=== PATIENT | male | born 1960 | race Caucasian/White ===

== ENCOUNTER → 2017-10-18 15:14 | Outpatient (CLI) | payer MEDICARE, SELFPAY ==
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
== END ==
PROVIDERS: Visit Provider Family Medicine
DX: R59.0 Localized enlarged lymph nodes (principal)
CPT/HCPCS: 70491; Q9967

== ENCOUNTER → 2017-11-06 09:29 | Outpatient (CLI) | payer MEDICARE, SELFPAY ==
--- NOTE | 2017-11-06 | IMM_PTH ---
PATIENT: ROSANNA MCCARTHY III LOC: LAB. U#:[id number] AGE/SX: 65/M ROOM: RE11/06/[address]: Dr. Wes Ramirez MD : 1960 BED: DIS: SPEC #: [id number] RECD: 11/07/17 11:38 STATUS: MAX REQ #: [id number] SHANDRA: 11/06/17 00:[address]: Wes Ramirez DEPT: IMMUNOHISTOCHEMISTRY RECD BY: Shreya Arriola ENTERED: 11/07/17 11:40 SP TYPE: IMMUNO OTHR DR: Dr. Jane Campbell MD Tissues: Neck, NOS Procedures: CK5-6 (initial) CK14 (add) CK7 (add) KI-67 (add) P16 (add) P53 (add) P40 (add) PHYSICIAN & INSTITUTION [place] [id number] SPECIMEN INFORMATION: Tissue Source: Right neck mass Clinical Info: Right neck mass Specimen Number: [id number] CPT code: METHODOLOGY: Deparaffinized sections of prefer/formalin-fixed tissue or PAP/DQ stained slides are incubated with monoclonal/polyclonal antibodies/oligonucleotide probes. Localization is made via biotin free immunoperoxidase method. Appropriate controls are performed and reacted as expected. Results on target cell population are indicated in the following table: RESULTS: ANTIBODY / CLONE RESULT CK5-6 (D5 & 1684) noncontributory CK14 (LL002) noncontributory P40 (BC28) noncontributory P16 (E6H4) noncontributory CK7 (OV-TL12/30) noncontributory P53 (DO-7) noncontributory Ki-67 (30-9) noncontributory These tests were developed and their performance characteristics determined by [facility]. They may not have been cleared or approved by the U.S. Food and Drug Administration. The FDA has determined that such clearance or approval is not necessary. INTERPRETATION: Right neck mass, fine needle aspiration, smears and cell block: Malignant cells present derived from non-small cell carcinoma (only in smears). The cell block and the IHC stained smears are negative for malignant cells and are noncontributory. SJ:damon 11/08/17
--- NOTE | 2017-11-06 | FLU_PTH ---
PATIENT: ROSANNA MCCARTHY III LOC: [facility]#:[id number] AGE/SX: 65/M ROOM: RE11/06/[address]: Dr. Wes Ramirez MD : 1960 BED: DIS: SPEC #: [id number] RECD: 11/06/17 15:37 STATUS: MAX VICKY #: [id number] SHANDRA: 11/06/17 00:[address]: Wes Ramirez DEPT: CYTOLOGY RECD BY: Erich Hoyos ENTERED: 11/06/17 15:38 SP TYPE: Fluid OTHR DR: Dr. Jane Campbell MD Tissues: Neck, NOS Procedures: Pap Stain (control) Special Stain Group II Surgery Specimen Level IV Diff Quik Stain (control) Cell Block Cytospin Fluid HEADER OPERATION: FNA right neck mass PRE-OP DIAGNOSIS: Right neck mass TISSUE SUBMITTED: Right neck mass FNA DIAGNOSIS CYTOLOGY Fine needle aspiration, right neck mass (smears and cell block): Malignant cells present derived from non-small cell carcinoma, favor squamous cell carcinoma. See comment. AM:damon 11/07/17 COMMENT The specimen is evaluated at the time of FNA by Dr. Dobson. Immediate Evaluation = Positive for malignant cells consistent with non-small cell carcinoma, favor squamous cell carcinoma. Malignant cells are present only in the smears. The cell block and IHC (HI81-780) stained slides do not show any malignant cells and are non-contributory. Case has been reviewed in consultation with Dr. Dockery who concurs with the above diagnosis. IDC:SJ CYTOLOGY STUDY Slides are reviewed. CYTOLOGY GROSS Received is 0.2 ml of reddish fluid labeled with the patient's name, and designated right neck mass. Four imprints and two paps are made from the submitted fluid and the rest is added to CytoLyt for cell block preparation. Submitted for cytology study. / AM:damon 11/06/17 TC:0 CPT: 66206, 32050, 48328, 66108 ADDENDUM ADDENDUM ADDENDUM ADDENDUM ADDENDUM ADDENDUM ADDENDUM ADDENDUM ADDENDUM ADDENDUM ADDENDUM 12/12/2017 14:30 ADDENDUM 12/12/2017 14:30 ADDENDUM 12/12/2017 14:30 ADDENDUM 12/12/2017 14:30 ADDENDUM 12/12/2017 14:30 This addendum is added to incorporate an outside pathology consultation report. The case was examined at [facility] (#[id number]) and the following diagnosis was rendered. Right neck mass, fine needle aspiration: Positive for malignant cells. Metastatic squamous cell carcinoma. Please see complete above mentioned consultation report in EMR
== END ==
PROVIDERS: Family Provider Family Medicine; PCP Family Medicine; Visit Provider Otolaryngology Otolaryngology/Facial Plastic Surgery
DX: R22.1 Localized swelling, mass and lump, neck (principal)
CPT/HCPCS: 88108; 88305; 88313; 88341; 88342

== ENCOUNTER 2017-11-13 06:50 | Day surgery (SDC) | payer MEDICARE, SELFPAY ==
[2017-11-13] VITALS (10 sets, daily range): BP systolic 125–164; BP diastolic 74–96; PULSE 81–99; RESP 16–18; TEMP 36.3–37; O2SAT 94–99; BMI 18.1
--- NOTE | 2017-11-13 | TOBX_PTH ---
PATIENT: ROSANNA MCCARTHY III LOC: [facility] U#:[id number] AGE/SX: 57/M ROOM: RE11/13/[address]: Dr. Wes Ramirez MD : 1960 BED: DIS: 11/13/2017 SPEC #: [id number] RECD: 11/13/17 09:35 STATUS: MAX REHuong #: [id number] SHANDRA: 11/13/17 00:[address]: Wes Ramirez DEPT: SURGICAL PATHOLOGY RECD BY: Shreya Arriola ENTERED: 11/13/17 10:43 SP TYPE: TONGUE BX OTHR DR: Dr. Jane Campbell MD Tissues: A - Tongue, NOS Procedures: Frozen Section (charge) Surgery Specimen Level IV Frozen (no charge) HEADER OPERATION: Panendoscopy, biopsy tongue, frozen section PRE-OP DIAGNOSIS: Malignant neoplasm of anterior two thirds of tongue, secondary and unspecified malignant neoplasm of lymph nodes of head, face and neck, right TISSUE SUBMITTED: Tongue biopsy sent for FS FROZEN SECTION DIAGNOSIS Tongue, excisional biopsy: Invasive squamous cell carcinoma, completely excised. Focal squamous atypia at the anterior margin. ALEX:damon 11/13/17 Case has been reviewed in consultation with Dr. Dobson who concurs with the above diagnosis. IDC:AM MICROSCOPIC DIAGNOSIS Lesion of tongue, excisional biopsy: Invasive well to moderately differentiated squamous cell carcinoma, completely excised. AM:damon 11/14/17 COMMENT Well to moderately differentiated adenocarcinoma is present with ulceration in the excisional biopsy of the tongue. The carcinoma extends to involve superficial and mid portions of tongue skeletal muscle tissue in the biopsy. There is focal perineural invasion by carcinoma. Angiolymphatic invasion is not identified. The lesion measures 8 x 3 mm in greatest dimension (from glass slides). Focal mild to moderate atypia is noted at the anterior margin of resection. Reference is made to the patient?s recent fine needle aspiration of right neck mass from 11/07/17 ([id number]) in which malignant cells derived from non-small cell carcinoma, favors squamous cell carcinoma were identified. Case has been reviewed in consultation with Dr. Dockery who concurs with the above diagnosis. IDC:SJ MICROSCOPIC DESCRIPTION Slides are reviewed. GROSS DESCRIPTION Received fresh for frozen section diagnosis labeled with the patient's name is a specimen designated tongue biopsy. The specimen consists of a piece of pink-avendaño mucosal tissue measuring 2.4 x 1.5 cm and up to 0.5 cm in thickness. The specimen is oriented as follows: two sutures ? anterior, one suture ? base of margin. The specimen is inked as follows: anterior ? black, posterior ? blue, lateral margin ? green, medial margin ? yellow. The specimen is entirely submitted for frozen section diagnosis as follows: 1 ? anterior-posterior margin, 2 ? rest of the specimen. / SJ:rg 11/13/17 TC:0 CPT: 27458, 57694, 12179 ADDENDUM ADDENDUM ADDENDUM ADDENDUM ADDENDUM ADDENDUM ADDENDUM ADDENDUM ADDENDUM ADDENDUM 12/05/2017 12:43 ADDENDUM 12/05/2017 12:43 ADDENDUM 12/05/2017 12:43 ADDENDUM 12/05/2017 12:43 ADDENDUM 12/05/2017 12:43 This addendum is added to incorporate an outside pathology consultation report. The case was examined at [facility] (#[id number]) and the following diagnosis was rendered. Tongue, excisional biopsy: Invasive moderately to poorly differentiated keratinizing squamous cell carcinoma. Please see complete above mentioned consultation report in EMR
--- NOTE | 2017-11-13 11:34 | PCM.OP.BLANK ---
Operative Report Date of Procedure: 11/13/17 Operative procedure Procedure excision of ulcer right lateral border of the tongue Direct laryngoscopy Nasopharyngoscopy Laryngoscopy Esophagoscopy Preoperative diagnosis squamous cell carcinoma of the tongue and right neck metastases Postoperative diagnosis same The patient was placed supine on the operating room table. After satisfactory endotracheal general anesthesia had been obtained sterile drapes were applied and the patient draped in the usual sterile manner. The oral cavity was examined. The floor of mouth and the cheek mucosa and roof of mouth appeared to be normal. The anterior two thirds of the tongue exhibited a 1.5 cm ulcerated area on the right lateral surface of the tongue. The base of tongue and the retromolar trigone area appeared to be normal. Direct Laryngoscopy was then performed and the vallecula as well as the epiglottis, aryepiglottic folds and piriform sinuses were examined and were noted to be normal. Both cords appeared to be normal and there was no evidence of any lesions in the supraglottic and subglottic areas The nasopharynx was then examined and there was no evidence of any lesions in the posterior choanae or the area of the eustachian tube orifice. An esophagoscope was then introduced into the oral cavity and the posterior larynx was examined. The esophagus was entered and the upper third of the esophagus examined. There was no evidence of any mucosal lesions. The anterior two thirds of the tongue was then examined and 1% Xylocaine was infiltrated around the lesion on the lateral surface of the tongue. An elliptical shaped incision was outlined and the lesion completely excised. The excised specimen measured 3.5 x 2 cm in dimension. The sub-mucosal areas were approximated with interrupted sutures of 4-0 chromic catgut in layers. The mucosal edges were approximated with 4-0 chromic catgut. A frozen section diagnosis of squamous cell carcinoma was returned. The lesion was completely excised. The oral cavity was rinsed with saline. The patient was extubated and returned to the recovery room in satisfactory condition.
== END 2017-11-13 13:30 | disposition home or self-care (01) ==
LOC: SDC 06:51 → AC 06:52
PROVIDERS: Family Provider Family Medicine; PCP Family Medicine; Visit Provider Otolaryngology Otolaryngology/Facial Plastic Surgery
PROC: 0CJS8ZZ Inspection of Larynx, Via Natural or Artificial Opening Endoscopic (ICD-10-PCS; CPT 31575; principal; 2017-11-13 08:10)
DX: C02.3 Malignant neoplasm of anterior two-thirds of tongue, part unspecified (principal); C77.0 Secondary and unspecified malignant neoplasm of lymph nodes of head, face and neck; K21.9 Gastro-esophageal reflux disease without esophagitis; F17.200 Nicotine dependence, unspecified, uncomplicated; Z79.82 Long term (current) use of aspirin
CPT/HCPCS: 00170; 31525; 41112; 43191; 88305; 88331; J7120; J2405

== ENCOUNTER 2017-12-26 11:23 | Day surgery (SDC) | payer MEDICARE, SELFPAY ==
[2017-12-26 11:52] VITALS: BP 141/91; PULSE 90; RESP 18; TEMP 36.9; O2SAT 98; BMI 17.4
[2017-12-26 12:54] VITALS: BP 138/90; BP 141/91; PULSE 98; RESP 19; TEMP 36.9; O2SAT 98
[2017-12-26 13:00] VITALS: BP 131/86; BP 141/91; PULSE 93; RESP 16; O2SAT 97
[2017-12-26 13:05] VITALS: BP 121/88; BP 141/91; PULSE 88; RESP 16; O2SAT 98
[2017-12-26 13:09] VITALS: BP 141/91; BP 142/85; PULSE 89; RESP 16; TEMP 36.8; O2SAT 98
[2017-12-26 13:33] VITALS: BP 141/91
--- NOTE | 2017-12-27 11:55 | PCM.OPRPT ---
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, dysphagia, weight loss, need for nutrition Post-Operative Diagnosis: same as above, also esophageal opening too small to pass esophagoscope Surgery/Procedure Performed:: attempted PEG Description of Surgical Findings:: esophageal opening just proximal to vocal cords - too small an opening to pass esophagoscope - therefore procedure aborted Type of Anesthesia:: MAC Anesthesiologist: Roldan Skelton Specimen's removed: none Estimated Blood Loss (mL): none Fluids Replaced: see anesthesia note Description of Procedure: Jay Crabtree is a 57 y/o WM with known tongue cancer and also 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 Both are SCCa. He presents for placement of PEG. He has noted difficulty swallowing for months, and lately has only been able to drink liquids. Under MAC anesthesia, the upper endoscopy was attempted. Appropriate time out protocol was followed. The endoscopy was lubricated and inserted into the patient's mouth. The hypopharyngeal area was easily visualized. The opening of the esophagus could not be achieved even with insufflation of air. There was obvious obstruction from the hypopharyngeal mass causing obstruction upon the opening into the esophagus. Therefore the procedure was aborted. The vocal cords and opening of the trachea was widely open and patent and easily visualized. Patient will be referred to [facility] or [facility] for placement of PEG. - Complications no complications, could not complete procedure
== END 2017-12-26 13:34 | disposition home or self-care (01) ==
LOC: EN 11:23 → AC 11:25
PROVIDERS: Family Provider Family Medicine; PCP Family Medicine; Visit Provider Surgery
PROC: 0DJ08ZZ Inspection of Upper Intestinal Tract, Via Natural or Artificial Opening Endoscopic (ICD-10-PCS; CPT 43235; 2017-12-26 12:25)
DX: J39.2 Other diseases of pharynx (principal); C13.8 Malignant neoplasm of overlapping sites of hypopharynx; R13.12 Dysphagia, oropharyngeal phase; R63.4 Abnormal weight loss; C77.0 Secondary and unspecified malignant neoplasm of lymph nodes of head, face and neck; Z68.1 Body mass index [BMI] 19.9 or less, adult; F41.9 Anxiety disorder, unspecified; M19.042 Primary osteoarthritis, left hand; M19.041 Primary osteoarthritis, right hand; F32.9 Major depressive disorder, single episode, unspecified; M72.0 Palmar fascial fibromatosis [Dupuytren]; F17.210 Nicotine dependence, cigarettes, uncomplicated; Z79.891 Long term (current) use of opiate analgesic; Z79.899 Other long term (current) drug therapy
CPT/HCPCS: 43246; J7120

== ENCOUNTER 2018-01-13 04:53 | Emergency (ER) | payer MEDICARE, SELFPAY ==
[2018-01-13 04:54] VITALS: BP 121/73; PULSE 73; RESP 16; TEMP 36.5; O2SAT 99; BMI 17.4
--- NOTE | 2018-01-13 06:21 | ED.VISSUMM ---
- ER Visit Summary Date of Service: 01/13/18 Chief Complaint: Constipated and rectal pain History of Present Illness: The patient is a 58 M who presents with constipation. He has a history of stage III cancer. He states that this is in his neck and upper chest but he is not sure of the exact type. He was on fentanyl patches but states he was not prescribed or advised to take a stool softener. He has since stopped using the patches due to constipation. He states he has been constipated for about 3 weeks. He was recently seen at the [facility] for this. He had x-rays and was diagnosed with constipation and prescribed magnesium citrate to administer through his PEG tube. No rectal exam was performed at that time. Over the past several days he states that he feels like there is a hard stool mass right at his rectum that he is unable to pass despite straining. He complains of severe rectal pain but really no other abdominal pain. He denies other recent illness such as fevers vomiting chest pain shortness of breath. Physical Examination: Afebrile vitals are unremarkable Moist mucous membranes Heart regular rate and rhythm Lungs are clear Abdomen soft but he does have mild diffuse abdominal tenderness no guarding no rebound he has normal bowel sounds Digital rectal exam shows a fecal impaction. Test Results: Not indicated Emergency Department Course and Treatment: Patient has a fecal impaction. He was manually disimpacted. Lidocaine jelly was placed in the rectum. He did have pain associated with the disimpaction but did tolerate well otherwise. He was then given a fleets enema. He was able to have a bowel movement and reports marked relief of symptoms. Is advised to start a stool softener particularly if he restarts his opiates. All questions answered at bedside. Patient agreeable to the plan. He understands to return for new or worsening symptoms. He was discharged. Treatment Plan: [] Disposition: Discharge Impression: Fecal impaction This note was generated with [employer] dictation software. It may contain incorrect words, spelling, and punctuation that were not noted in review of the chart prior to signing ED Disposition - Plan for ED Patient: Chief Complaint: Constipation Referrals: Jane Campbell MD [Primary Care Provider] -
--- NOTE | 2018-01-13 06:26 | ED.DCSUM_ITS ---
- ER Visit Summary Date of Service: 01/13/18 Chief Complaint: Constipated and rectal pain History of Present Illness: The patient is a 58 M who presents with constipation. He has a history of stage III cancer. He states that this is in his neck and upper chest but he is not sure of the exact type. He was on fentanyl patches but states he was not prescribed or advised to take a stool softener. He has since stopped using the patches due to constipation. He states he has been constipated for about 3 weeks. He was recently seen at the [facility] for this. He had x-rays and was diagnosed with constipation and prescribed magnesium citrate to administer through his PEG tube. No rectal exam was performed at that time. Over the past several days he states that he feels like there is a hard stool mass right at his rectum that he is unable to pass despite straining. He complains of severe rectal pain but really no other abdominal pain. He denies other recent illness such as fevers vomiting chest pain shortness of breath. Physical Examination: Afebrile vitals are unremarkable Moist mucous membranes Heart regular rate and rhythm Lungs are clear Abdomen soft but he does have mild diffuse abdominal tenderness no guarding no rebound he has normal bowel sounds Digital rectal exam shows a fecal impaction. Test Results: Not indicated Emergency Department Course and Treatment: Patient has a fecal impaction. He was manually disimpacted. Lidocaine jelly was placed in the rectum. He did have pain associated with the disimpaction but did tolerate well otherwise. He was then given a fleets enema. He was able to have a bowel movement and reports marked relief of symptoms. Is advised to start a stool softener particularly if he restarts his opiates. All questions answered at bedside. Patient agreeable to the plan. He understands to return for new or worsening symptoms. He was discharged. Treatment Plan: [] Disposition: Discharge Impression: Fecal impaction This note was generated with [employer] dictation software. It may contain incorrect words, spelling, and punctuation that were not noted in review of the chart prior to signing ED Disposition - Plan for ED Patient: Chief Complaint: Constipation Referrals: Jane Campbell MD [Primary Care Provider] -
--- NOTE | 2018-01-13 06:26 | ED.DEP ---
ED Disposition - Plan for ED Patient: Chief Complaint: Constipation Instructions: ED Impaction Fecal Treated, ED Constipation Referrals: Jane Campbell MD [Primary Care Provider] -
== END 2018-01-13 06:37 | disposition home or self-care (01) ==
PROVIDERS: Emergency Provider Emergency Medicine; Family Provider Family Medicine; PCP Family Medicine
DX: K56.41 Fecal impaction (principal); C80.1 Malignant (primary) neoplasm, unspecified; Z79.891 Long term (current) use of opiate analgesic
CPT/HCPCS: 99282

== ENCOUNTER 2018-01-26 22:47 | Emergency (ER) | payer MEDICARE, SELFPAY ==
[2018-01-26 22:48] VITALS: BP 127/79; PULSE 90; RESP 16; TEMP 36.6; O2SAT 98; BMI 15.8
--- NOTE | 2018-01-26 23:17 | EKG12_ITS ---
Test Reason : DEHYDRATION Blood Pressure : / mmHG Vent. Rate : 081 BPM Atrial Rate : 081 BPM P-R Int : 154 ms QRS Dur : 090 ms QT Int : 396 ms P-R-T Axes : 070 043 096 degrees QTc Int : 460 ms Normal sinus rhythm with sinus arrhythmia Nonspecific T wave abnormality Prolonged QT Abnormal ECG Confirmed by PELON ROSARIO, TARA ([id number]), editor managing newspaper [employer] ([id number]) on 02/06/2018 6:48:51 PM Referred By: PATRICIAYENoy Confirmed By:TARA BIRD MD
--- NOTE | 2018-01-26 23:30 | ED.VISSUMM ---
- ER Visit Summary Date of Service: 01/26/18 Chief Complaint: [] Nausea trouble hydrating himself constipation of head neck possible esophageal cancer History of Present Illness: The patient is a 58 M [] ports she was diagnosed in September with head neck cancer that began under his tongue in his posterior throat in his right neck he had biopsies that showed cancer, he has been treated with radiation chemotherapy he has a PEG tube as he is unable to swallow and hydrate himself he presents complaining of persistent difficulty taking liquids by G-tube hydrating himself persistent sense of constipation my he had chemotherapy 2 weeks ago nothing recently Physical Examination: [] He is resting comfortably in bed he is cachectic he has an obvious mass in the right side of his neck is oral cavity seems dry his neck is otherwise supple his speech is easy to understand his oral cavity is generally unremarkable she has a fullness over the anterior cervical chain the lungs are clear the heart tones unremarkable abdomen is soft nontender G-tube is in place rectal exam shows hard stool in the rectal wall and he was disimpacted neurologically he is awake alert moving all 4 complaining of generalized fatigue Test Results: [] Emergency Department Course and Treatment: [] Planed all of the above the patient I recommended screening labs IV fluids potential admission, he adamantly declined admission stating simply want IV fluids and be discharged home follow-up with his physicians eValuation the patient's test ?2.7 he is taking supplemental potassium at home, he was given potassium here in the department IV fluids, he is feeling much better his final CT abdominal report is pending, I again offered him admission he refused admission stating he feels better and wants to go home he prefers outpatient management and will follow up with his physicians and oncologist next week and return for change in symptoms, we will check the CT abdomen and proceed with discharge planning as long as it shows nothing life-threatening Treatment Plan: [] Disposition: [] Home stable Impression: [] Nausea, dehydration, head neck cancer on chemotherapy constipation This note was generated with [employer] dictation software. It may contain incorrect words, spelling, and punctuation that were not noted in review of the chart prior to signing ED Disposition - Plan for ED Patient: Chief Complaint: General Illness Referrals: Jane Campbell MD [Primary Care Provider] -
[2018-01-26] MEDS: 0.9% Normal Saline 1,000 ML 1000 ML IV (23:50)
[2018-01-26 23:59] LABS: Absolute Lymphocyte Count 0.95 X10^3/ul (0.83-4.51); Absolute Neutrophil Count 4.4 X10^3/uL (2.0-7.7); Basophil# 0.02 X10^3/uL; Basophil% 0.3 % (0-1); Eosinophil# 0.22 X10^3/uL; Eosinophils% 3.7 % (0-5); Hematocrit 35.8 % (40-54); Hemoglobin 12.3 g/dl (13.0-16.5); Lymphocyte # 0.95 X10^3/ul (4.0); Lymphocyte % 15.9 % (19-41); Mean Corp Hgb Conc 34.4 g/gl (32-36); Mean Corpuscular Hgb 32.7 pg (27.0-32.0); Mean Corpuscular Volume 95.2 fL (80-94); Monocyte# 0.44 X10^3/uL; Monocyte% 7.3 % (0-10); Neutrophil # 4.36 X10^3/uL (2.7-7.7); Neutrophil % 72.8 % (47-70); Platelet Count 239 K/mm3 (150-450); RBC Distribution Width CV 11.5 % (11.6-14.6); RBC Distribution Width SD 39.8 fl (35.1-43.9); Red Blood Count 3.76 M/mm3 (4.6-6.2)
[2018-01-27 00:01] LABS: POSITIVE COUNT NO; POSITIVE DIFFERENTIAL NO; POSITIVE MORPHOLOGY NO
[2018-01-27 00:28] LABS: AST(SGOT) 49 U/L (15-37); Alanine Aminotransfer ALT/SGPT 127 U/L (16-61); Albumin, Serum 3.2 g/dL (3.2-5.0); Alkaline Phosphatase 100 U/L (45-117); Anion Gap 10 (5-15); BUN 28 mg/dL (7-18); BUN/Creat Ratio 26.2 RATIO (10-20); Calcium,Total 9.2 mg/dL (8.5-10.1); Chloride 93 mmol/L (98-107); Creatinine, Serum 1.07 mg/dL (0.70-1.30); EST Glomerular Filtration Rate 75 mL/min (>60); Est Glom Filt Rate - Afr Amer 91 mL/min (>60); Estimated Creatinine Clearance 56.52 ml/min; Globulin 4.6 g/dL (2.2-4.2); Glucose 125 mg/dL (74-106); Lipase 341 U/L (73-393); Potassium 2.7 mmol/L (3.5-5.1); Protein, Total 7.8 g/dL (6.4-8.2); Sodium Level 134 mmol/L (136-145)
--- NOTE | 2018-01-27 00:38 | ED.DEP ---
ED Disposition - Plan for ED Patient: Chief Complaint: General Illness Instructions: ED Constipation, Understanding Chemotherapy Referrals: Jane Campbell MD [Primary Care Provider] -
[2018-01-27 01:22] VITALS: BP 122/78; PULSE 87; RESP 16; O2SAT 98
--- NOTE | 2018-01-27 01:36 | ED.DEP ---
ED Disposition - Plan for ED Patient: Chief Complaint: General Illness Instructions: Understanding Chemotherapy, ED Constipation Prescriptions: Mineral Oil 120 ml PO BID PRN PRN #120 oil PRN Reason: Constipation Referrals: Jane Campbell MD [Primary Care Provider] -
[2018-01-27 01:40] VITALS: BP 125/67; PULSE 75; RESP 16; O2SAT 97
--- NOTE | 2018-01-27 01:41 | NURSING ---
PT CONCERNED THAT HE WAS GETTING CONSTIPATED AND PUTTING MIRALAX THROUGH HIS PEG AND THAT HAS NOT BEEN WORKING, DOCTOR GAVE THE PT AN RX FOR MINERAL OIL. IV REMOVED, AND REDRESSED PEG TUBE DRESSING.
--- NOTE | 2018-01-27 23:30 | CT_ITS ---
STUDY: CT ABDOMEN AND PELVIS WITHOUT CONTRAST REASON FOR EXAM: Male, 58 years old. Constipation RADIATION DOSAGE (If Supplied By Facility): CTDIvol = ( 6.16 ) mGy, DLP = ( 326.13 ) mGycm TECHNIQUE: Transaxial images were obtained from the lower chest to the upper thighs without oral contrast, and without intravenous contrast. Sagittal and coronal images were reconstructed. Individualized dose optimization techniques were used for this CT. COMPARISON: None. FINDINGS: There is minimal dependent atelectasis in both lung bases. There is no pleural effusion. The heart is normal in size. The liver is unremarkable. The gallbladder and biliary ducts are unremarkable. The spleen is unremarkable. The pancreas is unremarkable. The adrenal glands are unremarkable. The right kidney is unremarkable. There is no dilatation of the collecting system in the right kidney. The left kidney is unremarkable. There is no dilatation of the collecting system in the left kidney. There is a percutaneous gastrostomy tube with the balloon in the antrum of the stomach. The small bowel is unremarkable. There is marked stool in the colon. There is non-visualization of the appendix. There are minimal scattered vascular calcifications. The IVC is unremarkable. The retroperitoneum is unremarkable. There is no free fluid in the abdomen. The urinary bladder is unremarkable. The prostate is normal in size. The soft tissues are unremarkable. There are mild degenerative changes in the visualized spine. CT/Abdomen/Pelvis without Cont IMPRESSION: No acute abnormalities are seen in the abdomen or pelvis. There is marked stool in the colon. There are no acute bowel abnormalities. There is no ascites, free air, inflammation or significant lymphadenopathy. Electronically Signed: Chana Cortez MD at 1:09 EDT Tel Direct: [phone], Service support ,
== END 2018-01-27 01:42 | disposition home or self-care (01) ==
LOC: ED 23:57
PROVIDERS: Emergency Provider Emergency Medicine; Family Provider Family Medicine; PCP Family Medicine
DX: R11.0 Nausea (principal); E86.0 Dehydration; K59.00 Constipation, unspecified; C76.0 Malignant neoplasm of head, face and neck; Z79.899 Other long term (current) drug therapy
CPT/HCPCS: 74176; 80048; 80076; 83690; 84484; 85025; 93005; 96360; 96361; 99285; J7040

== ENCOUNTER 2018-09-09 02:13 | Emergency (ER) | payer MEDICARE, SELFPAY ==
[2018-09-09 02:15] VITALS: BP 169/96; PULSE 108; RESP 18; TEMP 37.1; O2SAT 97; BMI 17.8
--- NOTE | 2018-09-09 02:48 | RAD_ITS ---
STUDY: X-RAY - ABDOMEN/PELVIS REASON FOR EXAM: Male, 58 years old. PEG tube placement. Images obtained after injecting Gastrografin through PEG tube. TECHNIQUE: AP supine abdomen. COMPARISON: [employer] view CT abdomen and pelvis January 27, 2018. FINDINGS: Normal visualized lung bases. A PEG tube is present with tip in the gastric body. There is oral contrast within the stomach and proximal duodenum without evidence of extravasation of contrast. There is an unremarkable bowel gas pattern. There is no demonstrated free abdominal air. The visualized liver, spleen and kidneys are grossly normal in size and morphology. Normal soft tissue structures. Normal visualized osseous structures. RAD/Abdomen Single View IMPRESSION: PEG tube tip in the gastric body without evidence of a leak. Normal bowel gas pattern without evidence of obstruction. Electronically Signed: Isaak Andres MD at 3:17 EST , Service support ,
--- NOTE | 2018-09-09 02:57 | ED.DCSUM_ITS ---
- ER Visit Summary Date of Service: 09/09/18 Chief Complaint: PEG tube dislodged History of Present Illness: The patient is a 58 M presenting for evaluation secondary to PEG tube dislodgment. Patient has a PEG tube in place secondary to stage III throat cancer. He uses this for feedings. Patient states that about an hour prior to arrival he noticed that it had fallen out. It has been in place since October. Physical Examination: Physical exam unremarkable except for abdominal exam. Patient's PEG tube site is clean dry and intact without any evidence of infection. Test Results: Abdominal x-ray demonstrates good placement of replacement PEG tube with Gastrografin Emergency Department Course and Treatment: Patient presented for evaluation secondary to PEG tube dislodgment. PEG tube was not immediately available, so I placed a straight catheter from a urinary straight cath kit in the patient's stoma as a place tinajero. A PEG tube became available, and was actually a 20 Zimbabwean rather than an 18 Zimbabwean. This was lubricated, and was able to be easily passed. The 6 cc balloon was filled with air. Placement was formed with Gastrografin. Patient was discharged. Disposition: Discharge Impression: 1. PEG tube malfunction 2. PEG tube replacement by ED physician This note was generated with [employer] dictation software. It may contain incorrect words, spelling, and punctuation that were not noted in review of the chart prior to signing ED Disposition - Plan for ED Patient: Disposition: Home or Assisted Living Chief Complaint: Other, Pain/Inj Diagnosis: PEG tube malfunction Instructions: ED G Tube Replacement Referrals: Jane Campbell MD [Primary Care Provider] - As Needed
== END 2018-09-09 03:02 | disposition home or self-care (01) ==
PROVIDERS: Emergency Provider Emergency Medicine; Family Provider Family Medicine; PCP Family Medicine
DX: K94.23 Gastrostomy malfunction (principal); C14.0 Malignant neoplasm of pharynx, unspecified
CPT/HCPCS: 74018; 99282

== ENCOUNTER 2018-11-06 12:47 | Emergency (ER) | payer MEDICARE, SELFPAY ==
[2018-11-06 12:49] VITALS: BP 107/78; PULSE 117; RESP 19; TEMP 36.3; O2SAT 97; BMI 16.7
--- NOTE | 2018-11-06 13:56 | ED.VIS.GEN ---
History of Present Illness Chief Complaint: Other, Pain/Inj Informant: Patient Onset: Today Context: Sudden Onset Timing: Continuous Quality: Feeding tube fell out Location: PEG Current Severity: Moderate Maximum Severity: Moderate Worsened by: Ruptured balloon Relieved by: Nothing Associated Symptoms: None Narrative: Middle-aged male with metastatic esophageal cancer presents because feeding tube fell out. He states he attempted the place it back in, but he was unsuccessful. He presents the emergency department. He has no other complaints. 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 Denies: Chills, Fever Eyes: Denies: Visual changes - bilaterally, Blurred Vision - bilaterally, Diplopia ENT: Denies: Bilateral ear pain, Rhinorrhea, Sore throat Cardiovascular: Denies: Chest pain, Palpitations, Heart racing Respiratory: Denies: Dyspnea, Cough, Dyspnea on exertion Gastrointestinal: Denies: Abdominal pain, Nausea, Vomiting, Diarrhea, Melena, Hematochezia Skin: Denies: Rash Psych: Reports: Depression Hematologic: Denies: Easy bruising, Easy bleeding Allergy: Denies: Uticaria Physical Exam Vital Signs/Narrative: Vital Signs Temp Pulse Resp BP Pulse Ox 11/06/18 12:49 97.4 F L 117 H 19 H 107/78 97 Inital Vital Signs reviewed: Yes General: Well developed, Cachectic Head: Normocephalic, Atraumatic Eyes: Perrl, EOMI. Negative for: Pale conjunctiva, Scleral icterus ENT: Moist mucous membranes, No rhinorrhea, TM's clear Neck: Supple, Nontender, No lymphadenopathy Cardiovascular: Regular rate, Regular rhythm, No murmurs, Normal S1, Normal S2 Respiratory: No distress, CTA bilaterally, Chest nontender Abdomen: Soft, Nontender, Nondistended, Normal bowel sounds, No masses, - - Abdomen is scaphoid Rectal: Deferred Back: Nontender Neurological: Alert, Oriented x3, Cranial nerves II-XII grossly intact, Normal Strength, Normal Sensation Psychological: - - Affect is flat Diagnostic/Tx/Re-eval - Medical Decision Making Unable to place 20 Stateless feeding tube. Endoscopy was contacted and urethral sounds were sent. Using urethral sounds ostomy was dilated and successfully placed 20 Stateless feeding tube without difficulty. Gastric fluid was aspirated. Procedures Procedure(s): Placement of feeding tube, 20 Stateless after dilating ostomy with urethral sounds. This was performed without difficulty or complication and patient tolerated procedure. ED Disposition - Plan for ED Patient: Disposition: Home or Assisted Living Diagnosis: Status post insertion of percutaneous endoscopic gastrostomy (PEG) tube Instructions: ED G Tube Replacement Referrals: Jane Campbell MD [Primary Care Provider] - As Needed
[2018-11-06 14:19] VITALS: PULSE 107; RESP 17; O2SAT 97
== END 2018-11-06 14:19 | disposition home or self-care (01) ==
PROVIDERS: Emergency Provider Emergency Medicine; Family Provider Family Medicine; PCP Family Medicine
DX: T85.898A Other specified complication of other internal prosthetic devices, implants and grafts, initial encounter (principal); C15.9 Malignant neoplasm of esophagus, unspecified; C79.9 Secondary malignant neoplasm of unspecified site; F17.200 Nicotine dependence, unspecified, uncomplicated; Z93.1 Gastrostomy status
CPT/HCPCS: 99282

== ENCOUNTER 2018-11-18 17:01 | Emergency (ER) | payer MEDICARE, SELFPAY ==
[2018-11-18 17:01] VITALS: BP 121/82; PULSE 129; RESP 16; TEMP 36.6; O2SAT 99; BMI 15.9
[2018-11-18] MEDS: 0.9% Normal Saline 1,000 ML 1000 ML IV (18:03)
--- NOTE | 2018-11-18 18:09 | ED.RN ---
NO SEPSIS CONCERN AT THIS TIME, DEHYDRATED.
[2018-11-18 18:23] LABS: Absolute Lymphocyte Count 0.21 X10^3/ul (0.83-4.51); Basophil# 0.01 X10^3/uL; Basophil% 0.8 % (0-1); Eosinophil# 0.02 X10^3/uL; Eosinophils% 1.5 % (0-5); Hematocrit 32.7 % (40-54); Hemoglobin 10.3 g/dl (13.0-16.5); Lymphocyte # 0.21 X10^3/ul (4.0); Lymphocyte % 15.9 % (19-41); Mean Corp Hgb Conc 31.5 g/gl (32-36); Mean Corpuscular Hgb 28.9 pg (27.0-32.0); Mean Corpuscular Volume 91.6 fL (80-94); Mean Platelet Vol. 9.8 fl (6.2-12.0); Monocyte# 0.07 X10^3/uL; Monocyte% 5.3 % (0-10); Neutrophil % 75.7 % (47-70); Platelet Count 605 K/mm3 (150-450); RBC Distribution Width CV 14.5 % (11.6-14.6); RBC Distribution Width SD 48.6 fl (35.1-43.9); Red Blood Count 3.57 M/mm3 (4.6-6.2)
[2018-11-18 18:24] LABS: Differential Indicated SCAN CRITERIA MET; POSITIVE COUNT YES; POSITIVE DIFFERENTIAL YES; POSITIVE MORPHOLOGY NO
[2018-11-18 18:25] LABS: White Blood Count 1.3 K/mm3 (4.4-11.0)
[2018-11-18 18:37] LABS: AST(SGOT) 20 U/L (15-37); Alanine Aminotransfer ALT/SGPT 17 U/L (16-61); Albumin, Serum 2.8 g/dL (3.2-5.0); Alkaline Phosphatase 96 U/L (45-117); Anion Gap 11 (5-15); BUN 11 mg/dL (7-18); BUN/Creat Ratio 14.7 RATIO (10-20); Bilirubin, Direct 0.18 mg/dL (0.00-0.30); Calcium,Total 9.7 mg/dL (8.5-10.1); Chloride 100 mmol/L (98-107); Creatinine, Serum 0.75 mg/dL (0.70-1.30); EST Glomerular Filtration Rate 114 mL/min (>60); Est Glom Filt Rate - Afr Amer 138 mL/min (>60); Estimated Creatinine Clearance 78.52 ml/min; Globulin 4.9 g/dL (2.2-4.2); Glucose 88 mg/dL (74-106); Potassium 3.2 mmol/L (3.5-5.1); Protein, Total 7.7 g/dL (6.4-8.2); Sodium Level 135 mmol/L (136-145)
[2018-11-18 18:39] LABS: Differential Comment SCANNED
[2018-11-18 19:32] VITALS: BMI 15.9
[2018-11-18 19:49] VITALS: BP 158/97; PULSE 108; RESP 17; O2SAT 98
[2018-11-18] MEDS: 0.9% Normal Saline 1,000 ML 150 ML IV (20:14)
[2018-11-18 20:21] LABS: Bacteria 0 SEEN /hpf (None Seen); Mucous, Urine 0 SEEN /hpf (<or=2+); Red Blood Cells-Urine 0 SEEN /hpf (0-5); White Blood Cells 0 SEEN /hpf (0-5)
[2018-11-18 20:23] LABS: Color, Urine Yellow (Yellow); Glucose, Dipstick Normal (Normal); Leukocyte Esterase-Dipstick Negative /ul (Negative); Nitrite-Dipstick Negative (Negative); Occult Blood-Urine Negative /ul (Negative); Protein-Dipstick 30 mg/dl (Negative); Specific Gravity, Urine 1.025 (1.002-1.030); Urine Bilirubin Dipstick Negative (Negative); Urine Clarity Sl. Cloudy (Clear); Urine Urobilinogen Normal (Normal)
--- NOTE | 2018-11-18 20:37 | ED.RN ---
lab called with critical lab results. Urine ketones 150. Dr. Chapa made aware no new orders at this time
[2018-11-18 20:38] LABS: Ketone-Dipstick 150 mg/dl (Negative)
[2018-11-18 20:39] LABS: Squamous Epithelial Cells - UA 0-5 SEEN /hpf (0-5)
--- NOTE | 2018-11-18 21:05 | ED.RN ---
POTASSIUM CRUSHED AND GIVEN VIA PEG TUBE PER DR DOMÍNGUEZ. PEG ASPIRATED FOR APPROX 10ML CLEAR FLUID. AIR BOLUS ASCULTATED. POTASSIUM GIVEN WITH OUT DIFFICULTY FOLLOWED BY 30ML FLUSH WATER.
--- NOTE | 2018-11-18 21:08 | ED.DCSUM_ITS ---
- ER Visit Summary Date of Service: 11/18/18 Chief Complaint: Weakness History of Present Illness: The patient is a 58 M with stage IV esophageal cancer. He started his fourth type of treatment 2 weeks ago. He had his third dose of chemotherapy on November 14. He reports increased weakness since the . His legs feel weak and he states he has difficulty ambulating. His throat has been more swollen but he is able to tolerate liquids. He has not felt good enough to do his PEG feedings. Physical Examination: Vital signs significant for heart rate of 129, otherwise unremarkable. Patient sitting upright in bed. Head neck examination reveals dry mucous membranes. Heart is tachycardic and regular. Lungs sounds clear. Abdomen is soft and nontender. PEG tube site is clean. Test Results: CBC was a white count of 1.3 with 75% neutrophils. Hemoglobin 10.3. Platelet count is 605,000. Chemistry studies show potassium 3.2. Urinalysis shows 150 ketones. Emergency Department Course and Treatment: Patient was given IV fluids here. Potassium chloride was given via PEG tube. Repeat vital signs include blood pressure 121/78 heart rate of 98. At this time patient does feel improved and wishes to go home rather than stay in the hospital. He was encouraged to be sure to do his PEG tube feedings at night. I spoke with Dr. Ugalde, his oncologist. Patient is to call the office in the morning and he can be brought in to the office for further hydration if needed. Treatment Plan: [] Disposition: Discharge Impression: 1. Dehydration 2. Hypokalemia This note was generated with [employer] dictation software. It may contain incorrect words, spelling, and punctuation that were not noted in review of the chart prior to signing ED Disposition - Plan for ED Patient: Disposition: Home or Assisted Living Instructions: ED Dehydration Referrals: Jose R Ugalde, [STAFF PHYSICIAN] - As soon as possible
--- NOTE | 2018-11-18 21:08 | ED.DEP ---
ED Disposition - Plan for ED Patient: Disposition: Home or Assisted Living Instructions: ED Dehydration Referrals: Jose R Ugalde DO [STAFF PHYSICIAN] - As soon as possible
[2018-11-18 21:22] VITALS: BP 121/78; PULSE 98; RESP 17; O2SAT 97
[2018-11-19 12:39] LABS: Pathologist Review Reviewed
== END 2018-11-18 21:23 | disposition home or self-care (01) ==
PROVIDERS: Emergency Provider Emergency Medicine; Family Provider Family Medicine; PCP Family Medicine
DX: E87.6 Hypokalemia (principal); E86.0 Dehydration; J02.9 Acute pharyngitis, unspecified; K21.9 Gastro-esophageal reflux disease without esophagitis; C15.9 Malignant neoplasm of esophagus, unspecified; Z72.0 Tobacco use
CPT/HCPCS: 80048; 80076; 81001; 85025; 96360; 96361; 99284; J7030

== ENCOUNTER 2018-11-29 11:02 | Inpatient (IN) | payer MEDICARE, SELFPAY ==
[2018-11-29] VITALS (14 sets, daily range): BP systolic 115–144; BP diastolic 78–92; PULSE 83–119; RESP 12–20; TEMP 37.1–37.2; O2SAT 93–99; BMI 16.7; BMI 13.4; BMI 13.5
--- NOTE | 2018-11-29 11:24 | EKG12_ITS ---
Test Reason : SOB Blood Pressure : / mmHG Vent. Rate : 100 BPM Atrial Rate : 100 BPM P-R Int : 140 ms QRS Dur : 082 ms QT Int : 354 ms P-R-T Axes : 086 070 090 degrees QTc Int : 456 ms Normal sinus rhythm Right atrial enlargement Nonspecific ST abnormality Abnormal ECG Confirmed by MIKE ROSARIO, ANSLEY ([id number]), photograph editor PENELOPE LICEA ([id number]) on 12/02/2018 11:16:27 AM Referred By: SANDEEP Confirmed By:ANSLEY MCKEON MD
[2018-11-29 12:07] LABS: Absolute Lymphocyte Count 0.61 X10^3/ul (0.83-4.51); Absolute Neutrophil Count 3.9 X10^3/uL (2.0-7.7); Basophil# 0.04 X10^3/uL; Basophil% 0.7 % (0-1); Eosinophil# 0.04 X10^3/uL; Eosinophils% 0.7 % (0-5); Hematocrit 36.1 % (40-54); Hemoglobin 11.2 g/dl (13.0-16.5); International Normalized Ratio 1.3; Lymphocyte # 0.61 X10^3/ul (4.0); Lymphocyte % 10.9 % (19-41); Mean Corpuscular Hgb 28.5 pg (27.0-32.0); Mean Corpuscular Volume 91.9 fL (80-94); Mean Platelet Vol. 10.2 fl (6.2-12.0); Monocyte# 0.94 X10^3/uL; Monocyte% 16.8 % (0-10); Neutrophil # 3.88 X10^3/uL (2.7-7.7); Neutrophil % 69.1 % (47-70); POSITIVE COUNT NO; POSITIVE DIFFERENTIAL NO; POSITIVE MORPHOLOGY NO; Partial Thromboplast Time 30.8 Seconds (24.1-36.2); Platelet Count 600 K/mm3 (150-450); Prothrombin Time (Protime)PT. 15.6 SECONDS (11.7-14.9); RBC Distribution Width CV 15.2 % (11.6-14.6); RBC Distribution Width SD 51.3 fl (35.1-43.9); Red Blood Count 3.93 M/mm3 (4.6-6.2); White Blood Count 5.6 K/mm3 (4.4-11.0)
[2018-11-29 12:16] LABS: Anion Gap 12 (5-15); BUN 10 mg/dL (7-18); BUN/Creat Ratio 17.8 RATIO (10-20); Calcium,Total 9.2 mg/dL (8.5-10.1); Chloride 96 mmol/L (98-107); Creatinine, Serum 0.56 mg/dL (0.70-1.30); EST Glomerular Filtration Rate 159 mL/min (>60); Est Glom Filt Rate - Afr Amer 192 mL/min (>60); Glucose 71 mg/dL (74-106); Sodium Level 135 mmol/L (136-145)
--- NOTE | 2018-11-29 12:18 | RAD_ITS ---
We are attempting to reach Ragini Smith to discuss findings. An addendum with communication details will be sent when the communication is complete. STUDY: X-RAY CHEST REASON FOR EXAM: Male, 58 years old. SOB; STAGE 4 TONGUE, THROAT, AND NECK CA TECHNIQUE: Frontal and lateral views of the chest. COMPARISON: None. FINDINGS: Hyperexpansion of both lungs. On the right, marked lucency is seen in the lower half of the right lung. The pulmonary parenchyma is displaced and compressed medially with marked atelectasis of much of the right lung. The appearance suggest a localized pneumothorax, since the right upper lobe appears adequately expanded and clear. No mediastinal shift. Left lung is clear. No effusions. Normal size heart. Normal mediastinum and oliver. Normal visualized pulmonary arteries. Normal visualized aortic arch and descending thoracic aorta. Normal visualized thoracic spine. Normal visualized ribs, clavicles, and shoulders. There is no demonstrated abnormality of the visualized soft tissue structures of the upper abdomen. RAD/Chest PA and Lateral IMPRESSION: Probable loculated pneumothorax in the lower half of the right hemithorax compressing the right lower lobe medially. Electronically Signed: Arjun Boothe MD at 13:09 EDT , Service support ,
[2018-11-29 12:25] LABS: Lactic Acid 1.3 mmol/L (0.4-2.0)
[2018-11-29] MEDS: 0.9% Normal Saline 1,000 ML 1000 ML IV (12:52)
[2018-11-29] MEDS: Ipratropium/Albuterol Sulfate 3 ML AMPUL.NEB INHALATION (13:02)
--- NOTE | 2018-11-29 14:14 | CT_ITS ---
STUDY: CTA CHEST REASON FOR EXAM: Male, 58 years old. HypoxiaSCTA - Chest THROAT CANCER WITH METS. CHEMO LAST WEEK RADIATION DOSAGE (If Supplied By Facility): CTDIvol = ( 9.0 ) mGy, DLP = ( 245.63 ) mGycm TECHNIQUE: The examination was performed with the intravenous administration of 100ML IV Isovue 370. Post-processing of the angiographic images was performed, with multiplanar reformation and 3D reconstruction. Individualized dose optimization techniques were used for this CT. COMPARISON: Chest x-ray of earlier today, which showed pneumothorax, which was telephoned directly to the treating physician. FINDINGS: Since prior exam, the right pneumothorax has increased and is now nearly completely with marked compression and atelectasis of the entire right lung especially the lower lobe, and there is now evidence for tension, with shift of the mediastinum to the left and depression of the right hemidiaphragm. Since the chest x-ray of earlier today, findings have progressed. No chest tube is seen. On the left, there is hyperexpansion of the lung. There is evidence for COPD. There are several poorly marginated focal pulmonary densities in the left lower lobe especially the posterior left lung base which could be atelectasis, infiltrates, or atypical metastases. No effusions. Normal enhancement of the main pulmonary artery and right and left pulmonary arteries. Normal enhancement of the bilateral peripheral pulmonary arteries. There is no demonstrated pulmonary embolism. Normal thoracic aorta and visualized great vessels. There is no demonstrated aortic dissection. Normal heart and pericardium. Normal osseous structures. Limited views through the upper abdomen suggest metastatic disease to the liver. PEG tube is seen in typical location. CT/CTA Chest W/WO Contrast IMPRESSION: No evidence for PE. Since chest x-ray of earlier today, worsening of a right pneumothorax, now showing evidence for tension and nearly complete atelectasis of the right lung. These findings may explain the patient's hypoxia. Electronically Signed: Arjun Boothe MD at 15:12 EDT , Service support ,
--- NOTE | 2018-11-29 15:58 | ED.VISSUMM ---
- ER Visit Summary Date of Service: 11/29/18 Chief Complaint: Shortness of breath History of Present Illness: The patient is a 58 M who presents with shortness of breath that has gradually gotten worse over the past week. Patient states his breathing is worse with any exertion. Patient admits to a cough but denies any sputum production. Patient admits to a sore throat and some rhinorrhea. Patient admits to some pain in his neck and chest. She denies any fevers or chills. Patient states he has a history of throat and tongue cancer. Physical Examination: Vital signs are stable except for mild tachycardia of 116. Patient is afebrile. Patient is in no acute distress. Pulse oximeter is 93% on room air patient is not tachypneic. Oral mucosa is pink and moist. Neck is supple. Trachea is midline. There is no JVD. Heart was regular and tachycardic. Lungs were diminished bilaterally. Abdomen is soft and nontender. Cranial nerves II through XII are intact. There are no focal motor or sensory deficits noted. Test Results: PA and lateral chest x-ray showed a loculated pneumothorax of the right lower lobe. EKG showed sinus rhythm with a rate of 100. There is some right atrial enlargement. There are no acute ST or T wave changes. CTA of the chest was obtained. There is a pneumothorax of the right lower middle lobes. There is also a pneumothorax in the right upper lobe area anterior and posterior to the right upper lobe. There are some adhesions of the right upper lobe to the chest wall. CBC, basic metabolic profile, troponin, and lactate were obtained and were essentially within normal limits. Emergency Department Course and Treatment: Patient was given a DuoNeb aerosol here. Case was discussed with Dr. Negron. She was here in the emergency department and will evaluate the patient for thoracostomy tube. Dr. Negron and came in and placed a thoracostomy tube. Repeat x-ray shows the lung was reexpanded. Dr. Negron will admit the patient to her service. Disposition: Admit to hospital Impression: Right pneumothorax This note was generated with [employer] dictation software. It may contain incorrect words, spelling, and punctuation that were not noted in review of the chart prior to signing ED Disposition - Plan for ED Patient: Disposition: Acute Care Hospital [facility] Diagnosis: Pneumothorax, right Referrals: Jane Campbell MD [Primary Care Provider] -
--- NOTE | 2018-11-29 16:03 | ED.DCSUM_ITS ---
- ER Visit Summary Date of Service: 11/29/18 Chief Complaint: Shortness of breath History of Present Illness: The patient is a 58 M who presents with shortness of breath that has gradually gotten worse over the past week. Patient states his breathing is worse with any exertion. Patient admits to a cough but denies any sputum production. Patient admits to a sore throat and some rhinorrhea. Patient admits to some pain in his neck and chest. She denies any fevers or chills. Patient states he has a history of throat and tongue cancer. Physical Examination: Vital signs are stable except for mild tachycardia of 116. Patient is afebrile. Patient is in no acute distress. Pulse oximeter is 93% on room air patient is not tachypneic. Oral mucosa is pink and moist. Neck is supple. Trachea is midline. There is no JVD. Heart was regular and tachycardic. Lungs were diminished bilaterally. Abdomen is soft and nontender. Cranial nerves II through XII are intact. There are no focal motor or sensory deficits noted. Test Results: PA and lateral chest x-ray showed a loculated pneumothorax of the right lower lobe. EKG showed sinus rhythm with a rate of 100. There is some right atrial enlargement. There are no acute ST or T wave changes. CTA of the chest was obtained. There is a pneumothorax of the right lower middle lobes. There is also a pneumothorax in the right upper lobe area anterior and posterior to the right upper lobe. There are some adhesions of the right upper lobe to the chest wall. CBC, basic metabolic profile, troponin, and lactate were obtained and were essentially within normal limits. Emergency Department Course and Treatment: Patient was given a DuoNeb aerosol here. Case was discussed with Dr. Negron. She was here in the emergency department and will evaluate the patient for thoracostomy tube. Dr. Negron and came in and placed a thoracostomy tube. Repeat x-ray shows the lung was reexpanded. Dr. Negron will admit the patient to her service. Disposition: Admit to hospital Impression: Right pneumothorax This note was generated with [employer] dictation software. It may contain incorrect words, spelling, and punctuation that were not noted in review of the chart prior to signing ED Disposition - Plan for ED Patient: Disposition: Acute Care Hospital [facility] Diagnosis: Pneumothorax, right Referrals: Jane Campbell MD [Primary Care Provider] -
--- NOTE | 2018-11-29 16:51 | RAD_ITS ---
STUDY: X-RAY CHEST REASON FOR EXAM: Male, 58 years old. Follow-up pneumothorax, status post chest tube. TECHNIQUE: Single AP portable view of the chest. COMPARISON: Radiographs and CT scan of earlier today.. FINDINGS: A small bore chest tube is seen overlying the lower right hemithorax. There appears to have been essentially complete evacuation of previous pneumothorax. There is reexpansion of the right lung with some density in the right lung base consistent with residual atelectasis. There is no longer any evidence for tension. No midline shift. Left lung is adequately expanded. Mild atelectasis is developing in the left lung base. No significant effusions are suggested. Normal size heart. Normal mediastinum and oliver. Normal visualized pulmonary arteries. Normal visualized aortic arch and descending thoracic aorta. Normal visualized thoracic spine. Normal visualized ribs, clavicles, and shoulders. There is no demonstrated abnormality of the visualized soft tissue structures of the upper abdomen. RAD/Chest 1 View (Portable) IMPRESSION: Apparently complete evacuation of previous pneumothorax status post chest tube placement. Some atelectasis is seen in the lower right lung. Electronically Signed: Arjun Boothe MD at 17:14 EDT , Service support ,
--- NOTE | 2018-11-29 17:00 | PCM.HP.STD ---
History of Present Illness Date of Admission: 11/29/18 The patient is a 58 year old M presented to the ER due to shortness of breath for the last week and a half, which patient states is gotten worse.patient has a past medical history significant for metastatic throat/tongue cancer which he is currently receiving chemotherapy for he is currently on his fourth round currently he is on his 2-week break from chemotherapy. Patient is being treated by Dr. Ugalde. In the ER patient had a chest x-ray showed right lower lobe pneumo, CT of the chest showed that this also did continue into the superior lobe however there may be some adhesions which allowed the right upper lobe to not be completely collapsed. Patient is currently on 2 L nasal cannula at 97-100%. He is tachycardic in the 100-110s. Patient states for the last 3-4 weeks he has only been using tube feeds when he felt hungry and not regularly. Past Medical History Allergies No Known Allergies Allergy (Verified 11/29/18 11:03) Home Medications: Ambulatory Orders Medication Instructions Recorded Ondansetron [Zofran] 8 mg PO Q8H PRN PRN 01/26/18 Megestrol Acetate 20 ml GT DAILY 11/06/18 Olanzapine 10 mg GT QHS 11/06/18 Tizanidine HCl 6 mg GT TID PRN PRN 11/06/18 traMADol [Ultram] 50 - 100 mg GT Q6H PRN 11/06/18 Potassium Chloride [Klor-Con M20] 20 meq GT BID 11/18/18 Lactose-Reduced Food/Fiber 250 ml GT Q4H 11/29/18 [Isosource 1.5 Wili Liquid] Surgical History: appendectomy, - - Frontal craniotomy for brain bleed, PEG tube, left leg s/p fracture, skin lesion removed from his back Psychiatric History: No pertinent psych hx Lives: Spouse/ Significant Other Smoking Status: Former smoker - *Family History Maternal History Items: No pertinent history Review of Systems Constitutional: Denies: Chills HEENT: Reports: Difficulty Swallowing Respiratory: Reports: Shortness of Breath Gastrointestinal: Denies: Abdominal Pain, Nausea, Vomiting Skin: Reports: Dryness Psychiatric: Denies: Suicidal Ideations Hematologic/ Lymphatic: Denies: Easy Bruising, Easy Bleeding VTE Information - Inpt Only VTE Present on Admission: Yes VTE Mechan Device Prophylaxis: SCD's VTE Pharm Prophylaxis ordered?: Yes Patient Problems: Active and Suspected Problems Pneumothorax, right (Acute) - Physical Exam General: Alert, Oriented x3, Cooperative HEENT: - - Scar in the frontal scalp from previous surgery due to brain bleed Neck: Supple Lungs: - - decrease breath sounds on right Cardiovascular: Tachycardic Abdomen: Soft, Non Tender, Non-Distended, - - PEG tube in place Extremities: No clubbing, No cyanosis, No edema Skin: - - very dry skin on this thorax Musculoskeletal: Cachexia Neurological: Cranial nerves II-XII grossly intact Psych/Mental Status: Normal Affect Vital Signs Temp Pulse Resp BP Pulse Ox 99.0 F 95 20 H 125/91 H 98 11/29/18 11:03 11/29/18 16:34 11/29/18 16:34 11/29/18 16:34 11/29/18 16:34 Oxygen Flow Rate (L/min) 2 Oxygen Delivery Method Nasal Cannula Weight: 120 lb Body Mass Index (BMI) 16.7 Intake and Output for Last 24 Hours 11/27/18 11/28/18 11/29/18 23:59 23:59 23:59 Output Total 0 / 0 Balance 0 / 0 Laboratory Tests Past 24 Hrs 11/29/18 11/29/18 11/29/18 11:50 11:50 11:50 WBC 5.6 RBC 3.93 L Hgb 11.2 L Hct 36.1 L MCV 91.9 MCH 28.5 MCHC 31.0 L RDW 15.2 H RDW Differential 51.3 H Plt Count 600 H MPV 10.2 Immature Gran % (Auto) 1.800 H Neut % (Auto) 69.1 Lymph % (Auto) 10.9 L [place] % (Auto) 16.8 H Eos % (Auto) 0.7 Baso % (Auto) 0.7 Absolute Neuts (auto) 3.9 Absolute Lymphs (auto) 0.61 L Total Counted Not Reportable PT 15.6 H INR 1.3 APTT 30.8 Sodium 135 L Potassium 4.0 Chloride 96 L Carbon Dioxide 27.0 Anion Gap 12 BUN 10 Creatinine 0.56 L Estim Creat Clear Calc 110.70 Est GFR (MDRD) Af Amer 192 Est GFR (MDRD) Non-Af 159 BUN/Creatinine Ratio 17.8 Glucose 71 L Lactic Acid Calcium 9.2 Troponin I < 0.015 11/29/18 11:50 WBC RBC Hgb Hct MCV MCH MCHC RDW RDW Differential Plt Count MPV Immature Gran % (Auto) Neut % (Auto) Lymph % (Auto) [place] % (Auto) Eos % (Auto) Baso % (Auto) Absolute Neuts (auto) Absolute Lymphs (auto) Total Counted PT INR APTT Sodium Potassium Chloride Carbon Dioxide Anion Gap BUN Creatinine Estim Creat Clear Calc Est GFR (MDRD) Af Amer Est GFR (MDRD) Non-Af BUN/Creatinine Ratio Glucose Lactic Acid 1.3 Calcium Troponin I Assessment/Plan All Active Problems 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 We will continue percutaneous chest tube to Pleur-evac at -20. We will get a chest x-ray in the morning. Also have the patient on continuous pulse ox as well as telemetry. Discussed with patient as well as his significant other would continue to watch the Pleur-evac if he still continues to have air bubbles (currently looks like air bubbles may have stopped) he may need transfer to tertiary care facility for further management. 2. Okay to continue his normal tube feeds via his PEG. Patient states he takes very little by mouth. 3. d/w Dr. Ugalde to let him know the patient has been admitted. Nidia Negron M.D. Pager: [phone] [facility] [address] [place] [address], [facility], [address] [place] [id number] Office: [phone] Code Visit Inpatient E&M: 86532 Init Hosp L2
--- NOTE | 2018-11-29 17:05 | HP.PCM_ITS ---
History of Present Illness Date of Admission: 11/29/18 The patient is a 58 year old M presented to the ER due to shortness of breath for the last week and a half, which patient states is gotten worse.patient has a past medical history significant for metastatic throat/tongue cancer which he is currently receiving chemotherapy for he is currently on his fourth round currently he is on his 2-week break from chemotherapy. Patient is being treated by Dr. Ugalde. In the ER patient had a chest x-ray showed right lower lobe pneumo, CT of the chest showed that this also did continue into the superior lobe however there may be some adhesions which allowed the right upper lobe to not be completely collapsed. Patient is currently on 2 L nasal cannula at 97- 100%. He is tachycardic in the 100-110s. Patient states for the last 3-4 weeks he has only been using tube feeds when he felt hungry and not regularly. Past Medical History Allergies No Known Allergies Allergy (Verified 11/29/18 11:03) Home Medications: Ambulatory Orders Medication Instructions Recorded Ondansetron [Zofran] 8 mg PO Q8H PRN PRN 01/26/18 Megestrol Acetate 20 ml GT DAILY 11/06/18 Olanzapine 10 mg GT QHS 11/06/18 Tizanidine HCl 6 mg GT TID PRN PRN 11/06/18 traMADol [Ultram] 50 - 100 mg GT Q6H PRN 11/06/18 Potassium Chloride [Klor-Con M20] 20 meq GT BID 11/18/18 Lactose-Reduced Food/Fiber 250 ml GT Q4H 11/29/18 [Isosource 1.5 Wili Liquid] Surgical History: appendectomy, - - Frontal craniotomy for brain bleed, PEG tube, left leg s/p fracture, skin lesion removed from his back Psychiatric History: No pertinent psych hx Lives: Spouse/ Significant Other Smoking Status: Former smoker - *Family History Maternal History Items: No pertinent history Review of Systems Constitutional: Denies: Chills HEENT: Reports: Difficulty Swallowing Respiratory: Reports: Shortness of Breath Gastrointestinal: Denies: Abdominal Pain, Nausea, Vomiting Skin: Reports: Dryness Psychiatric: Denies: Suicidal Ideations Hematologic/ Lymphatic: Denies: Easy Bruising, Easy Bleeding VTE Information - Inpt Only VTE Present on Admission: Yes VTE Mechan Device Prophylaxis: SCD's VTE Pharm Prophylaxis ordered?: Yes Patient Problems: Active and Suspected Problems Pneumothorax, right (Acute) - Physical Exam General: Alert, Oriented x3, Cooperative HEENT: - - Scar in the frontal scalp from previous surgery due to brain bleed Neck: Supple Lungs: - - decrease breath sounds on right Cardiovascular: Tachycardic Abdomen: Soft, Non Tender, Non-Distended, - - PEG tube in place Extremities: No clubbing, No cyanosis, No edema Skin: - - very dry skin on this thorax Musculoskeletal: Cachexia Neurological: Cranial nerves II-XII grossly intact Psych/Mental Status: Normal Affect Vital Signs Temp Pulse Resp BP Pulse Ox 99.0 F 95 20 H 125/91 H 98 11/29/18 11:03 11/29/18 16:34 11/29/18 16:34 11/29/18 16:34 11/29/18 16:34 Oxygen Flow Rate (L/min) 2 Oxygen Delivery Method Nasal Cannula Weight: 120 lb Body Mass Index (BMI) 16.7 Intake and Output for Last 24 Hours 11/27/18 11/28/18 11/29/18 23:59 23:59 23:59 Output Total 0 / 0 Balance 0 / 0 Laboratory Tests Past 24 Hrs 11/29/18 11/29/18 11/29/18 11:50 11:50 11:50 WBC 5.6 RBC 3.93 L Hgb 11.2 L Hct 36.1 L MCV 91.9 MCH 28.5 MCHC 31.0 L RDW 15.2 H RDW Differential 51.3 H Plt Count 600 H MPV 10.2 Immature Gran % (Auto) 1.800 H Neut % (Auto) 69.1 Lymph % (Auto) 10.9 L [place] % (Auto) 16.8 H Eos % (Auto) 0.7 Baso % (Auto) 0.7 Absolute Neuts (auto) 3.9 Absolute Lymphs (auto) 0.61 L Total Counted Not Reportable PT 15.6 H INR 1.3 APTT 30.8 Sodium 135 L Potassium 4.0 Chloride 96 L Carbon Dioxide 27.0 Anion Gap 12 BUN 10 Creatinine 0.56 L Estim Creat Clear Calc 110.70 Est GFR (MDRD) Af Amer 192 Est GFR (MDRD) Non-Af 159 BUN/Creatinine Ratio 17.8 Glucose 71 L Lactic Acid Calcium 9.2 Troponin I < 0.015 11/29/18 11:50 WBC RBC Hgb Hct MCV MCH MCHC RDW RDW Differential Plt Count MPV Immature Gran % (Auto) Neut % (Auto) Lymph % (Auto) [place] % (Auto) Eos % (Auto) Baso % (Auto) Absolute Neuts (auto) Absolute Lymphs (auto) Total Counted PT INR APTT Sodium Potassium Chloride Carbon Dioxide Anion Gap BUN Creatinine Estim Creat Clear Calc Est GFR (MDRD) Af Amer Est GFR (MDRD) Non-Af BUN/Creatinine Ratio Glucose Lactic Acid 1.3 Calcium Troponin I Assessment/Plan All Active Problems 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 We will continue percutaneous chest tube to Pleur-evac at -20. We will get a chest x-ray in the morning. Also have the patient on continuous pulse ox as well as telemetry. Discussed with patient as well as his significant other would continue to watch the Pleur-evac if he still continues to have air bubbles (currently looks like air bubbles may have stopped) he may need transfer to tertiary care facility for further management. 2. Okay to continue his normal tube feeds via his PEG. Patient states he takes very little by mouth. 3. d/w Dr. Ugalde to let him know the patient has been admitted. Nidia Negron M.D. Pager: [phone] [facility] [address] [place] [address], [facility], [address] [place] [id number] Office: [phone] Code Visit Inpatient E&M: 92420 Init Hosp L2
--- NOTE | 2018-11-29 17:14 | PCM.OPRPT ---
Report of Operation Date of Procedure: 11/29/18 Pre-Operative Diagnosis: Right pneumothorax Post-Operative Diagnosis: Same Surgery/Procedure Performed:: Right percutaneous chest tube Type of Anesthesia:: Local Estimated Blood Loss (mL): <3 cc Description of Procedure: Indications: 58-year-old male currently being treated with chemotherapy for tongue and throat cancer presented due to shortness of breath. Chest x-ray as well as CT chest did show a large pneumothorax on the right developing once entire right lower lobe the right upper lobe seem to be not collapsed due to a couple adhesions. Patient states been having shortness of breath for about the last weeks. Percutaneous right chest tube procedure is discussed with the patient including but not limited to risk of bleeding, infection, need for further surgery or chest tubes, injury to another organ and patient elected to proceed. After consent was obtained the right lateral chest wall was prepped and draped in usual sterile fashion with chlorhexidine. A spot was chosen along the anterior line at the anterior lateral aspect. 1% lidocaine was used for local anesthesia at this site as well as just over the rib-total of 4 cc. A small incision was made with a 11 blade scalpel. That 8 [place] percutaneous chest tube was placed just over the rib area advanced until air was drawn back on the syringe and the chest tube was advanced. Initially upon placement of the Pleur-evac there were a lot of air bubbles which has decreased over time. The percutaneous chest tube secured using 0 silk. The tube was also dressed with Xeroform as well as gauze and tegaderm. Patient's pulse ox remained stable throughout the procedure, patient tolerated procedure well. Chest x-ray after placement showed the right lung was expanded. - Complications None
--- NOTE | 2018-11-29 17:19 | OP.PCM_ITS ---
Report of Operation Date of Procedure: 11/29/18 Pre-Operative Diagnosis: Right pneumothorax Post-Operative Diagnosis: Same Surgery/Procedure Performed:: Right percutaneous chest tube Type of Anesthesia:: Local Estimated Blood Loss (mL): <3 cc Description of Procedure: Indications: 58-year-old male currently being treated with chemotherapy for tongue and throat cancer presented due to shortness of breath. Chest x-ray as well as CT chest did show a large pneumothorax on the right developing once entire right lower lobe the right upper lobe seem to be not collapsed due to a couple adhesions. Patient states been having shortness of breath for about the last weeks. Percutaneous right chest tube procedure is discussed with the patient including but not limited to risk of bleeding, infection, need for further surgery or chest tubes, injury to another organ and patient elected to proceed. After consent was obtained the right lateral chest wall was prepped and draped in usual sterile fashion with chlorhexidine. A spot was chosen along the anterior line at the anterior lateral aspect. 1% lidocaine was used for local anesthesia at this site as well as just over the rib-total of 4 cc. A small incision was made with a 11 blade scalpel. That 8 [place] percutaneous chest tube was placed just over the rib area advanced until air was drawn back on the syringe and the chest tube was advanced. Initially upon placement of the Pleur- evac there were a lot of air bubbles which has decreased over time. The percutaneous chest tube secured using 0 silk. The tube was also dressed with X eroform as well as gauze and tegaderm. Patient's pulse ox remained stable throughout the procedure, patient tolerated procedure well. Chest x-ray after placement showed the right lung was expanded. - Complications None
--- NOTE | 2018-11-29 18:14 | NS ---
Rec Jevity 1.5 via PEG at goal rate of 55mL/hour w/ 150mL H2O flush every 4 hours to provide 1980 calories, 84 g protein, and 1903cc free fluid per day. Would start tube feeds at 25mL/hour and increase by 10mL every 8 hours as pt tolerates until goal rate achieved. Rec close monitoring of electrolytes/blood glucose as pt at high risk for re-feeding Kasey Araujo MS, RDN, LD
[2018-11-29] MEDS: Lactated Ringers 1,000 ML 120 ML IV (18:32)
[2018-11-29] MEDS: Jevity 1.5 1,000 ML 25 ML GT (21:09)
[2018-11-29] MEDS: OLANZapine 10 MG Tablet GT (21:09)
[2018-11-29] MEDS: 0.9% Normal Saline 1,000 ML 125 ML IV (21:10)
[2018-11-30] VITALS (15 sets, daily range): BP systolic 100–125; BP diastolic 70–88; PULSE 99–119; RESP 18–20; TEMP 36.6–37.2; O2SAT 96–99
[2018-11-30] MEDS: traMADol 50 MG Tablet GT ×3 (01:16→16:35)
[2018-11-30] MEDS: 0.9% Normal Saline 1,000 ML 125 ML IV ×2 (04:47→23:44)
--- NOTE | 2018-11-30 06:59 | RAD_ITS ---
We are attempting to reach Nidia Negron to discuss findings. An addendum with communication details will be sent when the communication is complete. STUDY: X-RAY CHEST REASON FOR EXAM: Male, 58 years old. Status post chest tube placement. TECHNIQUE: Single AP portable view of the chest. COMPARISON: 11/29/2016, 4:45 PM. FINDINGS: Small chest tube is again seen in the right lower chest. The previously noted right pneumothorax has markedly increased in size since previous examination. There is now almost complete collapse of the right lung. Minimal atelectatic changes are seen in the left lung base. There is no evidence of left pleural effusion. Normal size heart. Normal mediastinum and oliver. Normal visualized pulmonary arteries. Normal visualized aortic arch and descending thoracic aorta. The bony structures are unchanged. There is no demonstrated abnormality of the visualized soft tissue structures of the upper abdomen. RAD/Chest 1 View (Portable) IMPRESSION: Right-sided pneumothorax markedly increased in size since previous examination. Electronically Signed: Oneal Manuel MD at 8:24 EDT Tel , Service support ,
[2018-11-30 07:32] LABS: Differential Indicated MANUAL DIFF; Hematocrit 31.1 % (40-54); Hemoglobin 9.6 g/dl (13.0-16.5); Mean Corp Hgb Conc 30.9 g/gl (32-36); Mean Corpuscular Hgb 28.1 pg (27.0-32.0); Mean Corpuscular Volume 90.9 fL (80-94); Mean Platelet Vol. 10.2 fl (6.2-12.0); POSITIVE COUNT YES; POSITIVE DIFFERENTIAL YES; POSITIVE MORPHOLOGY YES; Platelet Count 553 K/mm3 (150-450); RBC Distribution Width CV 15.2 % (11.6-14.6); RBC Distribution Width SD 50.5 fl (35.1-43.9); Red Blood Count 3.42 M/mm3 (4.6-6.2); White Blood Count 5.5 K/mm3 (4.4-11.0)
[2018-11-30 07:34] LABS: AST(SGOT) 22 U/L (15-37); Alanine Aminotransfer ALT/SGPT 10 U/L (16-61); Albumin, Serum 1.9 g/dL (3.2-5.0); Alkaline Phosphatase 75 U/L (45-117); Anion Gap 11 (5-15); BUN 5 mg/dL (7-18); BUN/Creat Ratio 9.6 RATIO (10-20); Bilirubin, Direct 0.09 mg/dL (0.00-0.30); Calcium,Total 7.9 mg/dL (8.5-10.1); Chloride 107 mmol/L (98-107); Creatinine, Serum 0.52 mg/dL (0.70-1.30); EST Glomerular Filtration Rate 173 mL/min (>60); Est Glom Filt Rate - Afr Amer 210 mL/min (>60); Estimated Creatinine Clearance 96.07 ml/min; Globulin 3.6 g/dL (2.2-4.2); Glucose 132 mg/dL (74-106); Magnesium 1.4 mg/dL (1.6-2.6); Potassium 3.2 mmol/L (3.5-5.1); Prealbumin 4.3 mg/dL (20.0-40.0); Protein, Total 5.5 g/dL (6.4-8.2); Sodium Level 141 mmol/L (136-145)
--- NOTE | 2018-11-30 07:45 | NURSING ---
Dr Calabrese at bedside to assess patient. Decision made to change out chest tube for larger size to better facilitate drainage. Dr Calabrese discussed with patient, then proceeded to remove existing chest tube and insert new 20 Fr tube. Procedure was completed at the bedside without complication, sterile field maintained throughout. Chest tube connected to pleuravac at -20 of suction per orders and occlusive petroleum gauze dressing applied by Dr Calabrese. Patient denies any further need at this time.
--- NOTE | 2018-11-30 07:55 | RAD_ITS ---
STUDY: X-RAY CHEST REASON FOR EXAM: Male, 58 years old. Follow-up pneumothorax. TECHNIQUE: Single AP portable view of the chest. COMPARISON: 11/30/2018, 7:35 AM. FINDINGS: There again is large right pneumothorax essentially unchanged in size since previous examination. There is complete collapse of the left lower lobe. The small right chest tube is in stable position. Minimal atelectatic changes in the left lung base are again seen. There is no demonstrated pleural abnormality. Normal size heart. Normal mediastinum and oliver. Normal visualized pulmonary arteries. Normal visualized aortic arch and descending thoracic aorta. Normal visualized thoracic spine. Normal visualized ribs, clavicles, and shoulders. There is no demonstrated abnormality of the visualized soft tissue structures of the upper abdomen. RAD/Chest 1 View IMPRESSION: Large right pneumothorax essentially unchanged since the prior examination. Electronically Signed: Oneal Manuel MD at 8:28 EDT Tel , Service support ,
[2018-11-30 08:09] LABS: Lymphocyte 15 % (19-41); Monocyte 6 % (0-10); Myelocyte 1 (0-0); Neutrophil-Segmented 78 % (47-70); Total Cells Counted 100 (MANUAL DIFF)
[2018-11-30 08:10] LABS: Anisocytosis 1+; Hypochromasia 1+; Platelet Estimate SLT INC (ADEQ)
[2018-11-30 08:11] LABS: Absolute Lymphocyte Count 0.82 X10^3/ul (0.83-4.51); Absolute Neutrophil Count 4.3 X10^3/uL (2.0-7.7); Lymphocyte # 0.82 X10^3/ul (4.0)
--- NOTE | 2018-11-30 09:02 | RAD_ITS ---
STUDY: X-RAY CHEST REASON FOR EXAM: Male, 58 years old. Chest tube placement TECHNIQUE: Single AP portable view of the chest. COMPARISON: Chest x-ray 11/30/2018 7:53 AM FINDINGS: There is been interval placement of a right-sided chest tube with its tip overlying the right midlung field. There is reexpansion of the right lower lobe. There is hazy airspace opacity in the reexpanded right lower lobe which may be due to atelectasis. Small right pleural effusion. The left lung is clear. No pneumothorax. Normal size heart. Normal mediastinum and oliver. Normal visualized pulmonary arteries. Normal visualized aortic arch and descending thoracic aorta. Normal visualized thoracic spine. Normal visualized ribs, clavicles, and shoulders. There is no demonstrated abnormality of the visualized soft tissue structures of the upper abdomen. RAD/Chest 1 View (Portable) IMPRESSION: Interval placement of a right-sided chest tube with reexpansion of the right lower lobe. Hazy airspace opacity in the reexpanded right lower lobe may be due to atelectasis. Small right pleural effusion. Electronically Signed: Marlena Montoya, at 9:36 EDT Tel , Service support ,
--- NOTE | 2018-11-30 09:20 | PCM.OPRPT ---
Report of Operation Date of Procedure: 11/30/18 Pre-Operative Diagnosis: Right pneumothorax Post-Operative Diagnosis: Same Surgery/Procedure Performed:: 20 American right chest tube placement Type of Anesthesia:: Local Drains: At about 80 cc of serosanguineous fluid from the chest tube Estimated Blood Loss (mL): None Description of Procedure: Indications 58-year-old male status post 8 Fr percutaneous chest tube with recurrent right pneumothorax. It initially try to increase suction to -40 on pleur-vac, but only got minimal air leak. The smaller [address] may not be able to drain with the small amount of ss fluid. Discussed risk benefits with the patient including but not limited to bleeding, infection, possible transfer if continues to have a pneumothorax/air leak. Patient was agreeable with plan. Right lateral chest wall prepped and draped in usual sterile fashion. Local anesthesia of 1% lidocaine was placed along the inframammary fold at the mid anterior axillary line just over the rib. Incision was made with a 15 blade scalpel. A hemostat was used to go over the rib and enter into the pleural space. A 20 American chest tube was placed and directed superiorly, +villegas of air on entry. Once it was hooked up to the Pleur-evac there are was an air leak initially which did stop. Total of 80 cc of serosanguineous fluid. The tube was secured with 0 silk suture and Vaseline gauze was placed along with gauze and tape. 20 American chest tube was placed to -20 suction on Pleur-evac. Postoperative chest x-ray did reveal expansion of the right lower lobe. Patient tolerated procedure well. - Complications none
[2018-11-30] MEDS: Enoxaparin 40 MG/0.4 ML Syringe SC (09:22)
[2018-11-30 09:24] LABS: Phosphorus 2.4 mg/dL (2.5-4.9)
[2018-11-30] MEDS: Magnesium Sulfate 4gm/100mL 4 GM/100 ML IV.SOLN. IV (09:28)
--- NOTE | 2018-11-30 09:28 | PCM.PN.SRG ---
Patient Problems: Active and Suspected Problems Pneumothorax, right (Acute) Subjective: Patient's chest x-ray still revealed pneumothorax with the percutaneous chest tube in place, did try changing the Pleur-evac to -40 suction have the patient cough however not as significant air leak and repeat chest x-ray still showed a pneumothorax and a collapsed right lower lobe. Patient had been able to be weaned to room air overnight. But still complains of issues with breathing. - Physical Exam General: Alert, Oriented x3, Cooperative Lungs: - - Right percutaneous chest tube in place, dressed, no consistent air leak Cardiovascular: Tachycardic Abdomen: Soft, Non Tender, Non-Distended Vital Signs Temp Pulse Resp BP Pulse Ox 98 F 99 20 H 121/88 H 96 11/30/18 04:52 11/30/18 07:35 11/30/18 04:52 11/30/18 04:52 11/30/18 07:22 Oxygen Flow Rate (L/min) 1 Oxygen Delivery Method Room Air Weight: 96 lb 11.2 oz Body Mass Index (BMI) 13.4 Intake and Output for Last 24 Hours 11/28/18 11/29/18 11/30/18 23:59 23:59 23:59 Intake Total 413 / 413 1537 / 1537 Output Total 0 / 0 465 / 465 Balance 413 / 413 1072 / 1072 Laboratory Tests Past 24 Hrs 11/29/18 11/29/18 11/29/18 11:50 11:50 11:50 WBC 5.6 RBC 3.93 L Hgb 11.2 L Hct 36.1 L MCV 91.9 MCH 28.5 MCHC 31.0 L RDW 15.2 H RDW Differential 51.3 H Plt Count 600 H MPV 10.2 Immature Gran % (Auto) 1.800 H Neut % (Auto) 69.1 Lymph % (Auto) 10.9 L Mcleod % (Auto) 16.8 H Eos % (Auto) 0.7 Baso % (Auto) 0.7 Absolute Neuts (auto) 3.9 Absolute Lymphs (auto) 0.61 L Total Counted Not Reportable Neutrophils % (Manual) Lymphocytes % (Manual) Monocytes % (Manual) Myelocytes % Platelet Estimate Hypochromasia Anisocytosis PT 15.6 H INR 1.3 APTT 30.8 Sodium 135 L Potassium 4.0 Chloride 96 L Carbon Dioxide 27.0 Anion Gap 12 BUN 10 Creatinine 0.56 L Estim Creat Clear Calc 110.70 Est GFR (MDRD) Af Amer 192 Est GFR (MDRD) Non-Af 159 BUN/Creatinine Ratio 17.8 Glucose 71 L Lactic Acid Calcium 9.2 Phosphorus Magnesium Total Bilirubin Direct Bilirubin AST ALT Alkaline Phosphatase Troponin I < 0.015 Total Protein Albumin Globulin Prealbumin 11/29/18 11/30/18 11/30/18 11:50 06:25 06:25 WBC 5.5 RBC 3.42 L Hgb 9.6 L Hct 31.1 L MCV 90.9 MCH 28.1 MCHC 30.9 L RDW 15.2 H RDW Differential 50.5 H Plt Count 553 H MPV 10.2 Immature Gran % (Auto) Neut % (Auto) Not Reportable Lymph % (Auto) Mcleod % (Auto) Eos % (Auto) Baso % (Auto) Absolute Neuts (auto) 4.3 Absolute Lymphs (auto) 0.82 L Total Counted 100 Neutrophils % (Manual) 78 H Lymphocytes % (Manual) 15 L Monocytes % (Manual) 6 Myelocytes % 1 H Platelet Estimate SLT INC Hypochromasia 1+ Anisocytosis 1+ PT INR APTT Sodium 141 Potassium 3.2 L Chloride 107 Carbon Dioxide 23.0 Anion Gap 11 BUN 5 L Creatinine 0.52 L Estim Creat Clear Calc 96.07 Est GFR (MDRD) Af Amer 210 Est GFR (MDRD) Non-Af 173 BUN/Creatinine Ratio 9.6 L Glucose 132 H Lactic Acid 1.3 Calcium 7.9 L Phosphorus Magnesium 1.4 L Total Bilirubin 0.30 Direct Bilirubin 0.09 AST 22 ALT 10 L Alkaline Phosphatase 75 Troponin I Total Protein 5.5 L Albumin 1.9 L Globulin 3.6 Prealbumin 4.3 L 11/30/18 06:25 WBC RBC Hgb Hct MCV MCH MCHC RDW RDW Differential Plt Count MPV Immature Gran % (Auto) Neut % (Auto) Lymph % (Auto) Mcleod % (Auto) Eos % (Auto) Baso % (Auto) Absolute Neuts (auto) Absolute Lymphs (auto) Total Counted Neutrophils % (Manual) Lymphocytes % (Manual) Monocytes % (Manual) Myelocytes % Platelet Estimate Hypochromasia Anisocytosis PT INR APTT Sodium Potassium Chloride Carbon Dioxide Anion Gap BUN Creatinine Estim Creat Clear Calc Est GFR (MDRD) Af Amer Est GFR (MDRD) Non-Af BUN/Creatinine Ratio Glucose Lactic Acid Calcium Phosphorus 2.4 L Magnesium Total Bilirubin Direct Bilirubin AST ALT Alkaline Phosphatase Troponin I Total Protein Albumin Globulin Prealbumin Medical Necessity - Tobacco Use Smoking Status: Former smoker Assessment/Plan All Active Problems 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 The percutaneous right chest tube was replaced with a 20 Polish chest tube. Repeat chest x-ray after procedure did show reexpansion of the right lower lobe. We will continue chest tube to -20 suction. 2. We will continue tube feeds. However patient's nutrition is very poor his prealbumin is 4.3 and his albumin is 1.8. Patient states for the last 3 or 4 weeks is only been using his tube feeds when he is hungry unsure exactly how often that is. Did discuss with patient that his chemotherapy cannot really help him if he does not have proper nutrition. 3. d/w Dr. Dr. Nelson plan to place a palliative care consult if patient is agreeable. Patient currently wants to be a full code. Nidia Negron M.D. Pager: [phone] [facility] [address] [place] [address], [facility], [address] [place] [id number] Office: [phone]
--- NOTE | 2018-11-30 12:45 | CASEMGMT ---
RN CM Assessment Presentation: Pneumothorax with chest tube. hx of chemo for metastatic tongue and throat cancer, malnutrition. Intro role of CM and purpose of RN CM assessment to patient in room. He is awake, alert and able to participate in CM assessment. Demographics, PCP and Pharmacy verified. Waiter/Waitress Informal is recommending TF. PCP: Dr. Fowler Specialists: Dr. Ugalde [facility] Insurance: [employer] [facility] Prescription Benefit: yes LNOK: Daughter LUDWIG Raphael Living Arrangements: lives in 3 story home, one floor set up. 4 steps onto main floor. Pt states his S.O Phyllis is able to assist if needed. Prior to admission pt states he was independent with daily care. Transportation: Drives DME: cane only. Pt is on oxygen presently. Pt states he would like oxygen at home because he often is short of breath. RN CM discussed oxygen testing prior to dc for patient. Pt does not have preference for DME company if O2 or supplies are needed. HHC: none Patient DC goals: Home DC PLAN: undetermined. PT/OT evaluations deferred today. Dietary recommending tube feedings. Rafa BANKSN RN ACM
--- NOTE | 2018-11-30 13:14 | CASEMGMT ---
RN CM Assessment Presentation: Pneumothorax with chest tube. hx of chemo for metastatic tongue and throat cancer, malnutrition. Intro role of CM and purpose of RN CM assessment to patient in room. He is awake, alert and able to participate in CM assessment. Demographics, PCP and Pharmacy verified. Floor Helper is recommending TF continuous. PCP: Dr. Fowler Specialists: Dr. Ugalde Preferred [facility]acy: [facility] Insurance: [employer] [facility] Prescription Benefit: yes LNOK: Daughter LUDWIG Raphael Living Arrangements: lives in 3 story home, one floor set up. 4 steps onto main floor. Pt states his S.O Phyllis is able to assist if needed. Prior to admission pt states he was independent with daily care. Pt has PEG tube with TF [employer]. Pt states this is ordered and sent to his home. He cannot remember which agency provides TF. Transportation: Drives DME: cane only. Pt is on oxygen presently. Pt states he would like oxygen at home because he often is short of breath. RN CM discussed oxygen testing prior to dc for patient. Pt does not have preference for DME company if O2 or supplies are needed. HHC: none CRISTHIAN Consult: Dr. Driscoll consult was placed for Hospice/Palliative Referral. CRISTHIAN Crump updated. Patient DC goals: Home DC PLAN: undetermined. PT/OT evaluations deferred today. Dietary recommending tube feedings. If changes in home TF, new script will need sent. Rafa FU RN ACM
--- NOTE | 2018-11-30 13:36 | CASEMGMT ---
SW met w/pt briefly in room, introduced self to pt. Pt reports has been going through cancer treatment for two years. Pt reports supportive fiance, daughter and son, all live local. Pt seems very tired, not up for talking further at this time. SW let pt know that SW is available for support to him as needed. Pt states understanding. JC Gibson, [employer]
--- NOTE | 2018-11-30 13:41 | CASEMGMT ---
LW/POA not on chart. SW spoke w/pt, confirmed daughter Donavon is POA. SW asked pt that if daughter has the forms, to have her bring them in and we can put a copy on the chart. Pt states understanding. JC Gibson
--- NOTE | 2018-11-30 20:32 | NURSING ---
Dr Pan called to check on patient. Updated on heartrate and O2 sat. She did order oxyIR through PEG for pain only to be given if prn ultram ineffective. Spoke with Luis Pharmacist and he said liquid oxy is available but needs a different order. Repaged Dr Negron.
[2018-11-30] MEDS: OLANZapine 10 MG Tablet GT (21:21)
[2018-12-01] VITALS (8 sets, daily range): BP systolic 100–111; BP diastolic 70–75; PULSE 103–118; RESP 16–22; TEMP 36.6–36.9; O2SAT 96–98
[2018-12-01] MEDS: Jevity 1.5 1,000 ML 25 ML GT (03:14)
--- NOTE | 2018-12-01 04:20 | RAD_ITS ---
STUDY: X-RAY CHEST REASON FOR EXAM: Male, 58 years old. Right-sided chest tube, follow-up TECHNIQUE: AP COMPARISON: 11/30/2018 FINDINGS: EKG leads project over the chest. Right-sided chest tube is stable. Parenchymal consolidation in the right more than left lung base stable since the prior study. Trace right pleural effusion is stable. There is interval development of a small (10%) pneumothorax along the right lateral chest. Normal size heart. Normal mediastinum and oliver. Normal visualized pulmonary arteries. Normal visualized aortic arch and descending thoracic aorta. No acute bony process. There is no demonstrated abnormality of the visualized soft tissue structures of the upper abdomen. RAD/Chest 1 View (Portable) IMPRESSION: Small (10%) right lateral pneumothorax, new. Right more than left basilar airspace disease with trace right pleural effusion, stable. Stable right chest tube. Electronically Signed: Wero Mcclure MD at 10:20 EDT , Service support ,
[2018-12-01 06:09] LABS: Anion Gap 7 (5-15); BUN 3 mg/dL (7-18); BUN/Creat Ratio 5.7 RATIO (10-20); Calcium,Total 7.6 mg/dL (8.5-10.1); Chloride 108 mmol/L (98-107); Creatinine, Serum 0.53 mg/dL (0.70-1.30); EST Glomerular Filtration Rate 170 mL/min (>60); Est Glom Filt Rate - Afr Amer 205 mL/min (>60); Estimated Creatinine Clearance 94.25 ml/min; Glucose 128 mg/dL (74-106); Magnesium 1.8 mg/dL (1.6-2.6); Potassium 3.4 mmol/L (3.5-5.1); Sodium Level 141 mmol/L (136-145)
[2018-12-01] MEDS: 0.9% Normal Saline 1,000 ML 40 ML IV (07:00)
--- NOTE | 2018-12-01 08:14 | PCM.PN.SRG ---
Patient Problems: Active and Suspected Problems Pneumothorax, right (Acute) Subjective: states breathing better, CXR still shows the lung is up on RLL, cal TF at 55 currently was stopped for 1 hour last night for high residues. - Physical Exam General: Alert, Oriented x3, Cooperative, No apparent distress Lungs: Rhonchi - Right lower lobe, Wheezes - Right lower lobe Cardiovascular: Tachycardic Abdomen: Soft, Non Tender, Non-Distended, - - PEG tube in place Vital Signs Temp Pulse Resp BP Pulse Ox 97.8 F 103 H 16 100/70 96 12/01/18 03:09 12/01/18 07:24 12/01/18 03:09 12/01/18 03:09 12/01/18 03:09 Oxygen Flow Rate (L/min) 1 Oxygen Delivery Method Room Air Weight: 96 lb 11.2 oz Body Mass Index (BMI) 13.4 Intake and Output for Last 24 Hours 11/29/18 11/30/18 12/01/18 23:59 23:59 23:59 Intake Total 413 / 413 4896 / 4896 1345 / 1345 Output Total 0 / 0 1405 / 1405 370 / 370 Balance 413 / 413 3491 / 3491 975 / 975 Laboratory Tests Past 24 Hrs 11/30/18 12/01/18 06:25 05:05 Sodium 141 Potassium 3.4 L Chloride 108 H Carbon Dioxide 26.0 Anion Gap 7 BUN 3 L Creatinine 0.53 L Estim Creat Clear Calc 94.25 Est GFR (MDRD) Af Amer 205 Est GFR (MDRD) Non-Af 170 BUN/Creatinine Ratio 5.7 L Glucose 128 H Calcium 7.6 L Phosphorus 2.4 L 2.0 L Magnesium 1.8 Medical Necessity - Tobacco Use Smoking Status: Former smoker Assessment/Plan All Active Problems 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 R CT- +leak with cough, continue suction on -20 2. on TF, high risk for refeeding will c/s hospitalist, hypokalemia/hypophos- replaced 3. palliative consulted Nidia Negron M.D. Pager: [phone] [facility] [address] [place] [address], Outpatient [facility], [address] [place] [address] Office: [phone] Code Visit Inpatient E&M: 74126 Subs Hosp L1
--- NOTE | 2018-12-01 08:21 | PN.SURG_ITS ---
Patient Problems: Active and Suspected Problems Pneumothorax, right (Acute) Subjective: states breathing better, CXR still shows the lung is up on RLL, cal TF at 55 currently was stopped for 1 hour last night for high residues. - Physical Exam General: Alert, Oriented x3, Cooperative, No apparent distress Lungs: Rhonchi - Right lower lobe, Wheezes - Right lower lobe Cardiovascular: Tachycardic Abdomen: Soft, Non Tender, Non-Distended, - - PEG tube in place Vital Signs Temp Pulse Resp BP Pulse Ox 97.8 F 103 H 16 100/70 96 12/01/18 03:09 12/01/18 07:24 12/01/18 03:09 12/01/18 03:09 12/01/18 03:09 Oxygen Flow Rate (L/min) 1 Oxygen Delivery Method Room Air Weight: 96 lb 11.2 oz Body Mass Index (BMI) 13.4 Intake and Output for Last 24 Hours 11/29/18 11/30/18 12/01/18 23:59 23:59 23:59 Intake Total 413 / 413 4896 / 4896 1345 / 1345 Output Total 0 / 0 1405 / 1405 370 / 370 Balance 413 / 413 3491 / 3491 975 / 975 Laboratory Tests Past 24 Hrs 11/30/18 12/01/18 06:25 05:05 Sodium 141 Potassium 3.4 L Chloride 108 H Carbon Dioxide 26.0 Anion Gap 7 BUN 3 L Creatinine 0.53 L Estim Creat Clear Calc 94.25 Est GFR (MDRD) Af Amer 205 Est GFR (MDRD) Non-Af 170 BUN/Creatinine Ratio 5.7 L Glucose 128 H Calcium 7.6 L Phosphorus 2.4 L 2.0 L Magnesium 1.8 Medical Necessity - Tobacco Use Smoking Status: Former smoker Assessment/Plan All Active Problems 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 R CT- +leak with cough, continue suction on -20 2. on TF, high risk for refeeding will c/s hospitalist, hypokalemia/hypophos- replaced 3. palliative consulted Nidia Negron M.D. Pager: [phone] [facility] [address] [place] [address], Outpatient Pavilion, [address] [place] [address] Office: [phone] Code Visit Inpatient E&M: 70389 Subs Hosp L1
[2018-12-01] MEDS: Na Biphos/Potassium Phosphate PACKET 1 PACKET PO ×2 (08:51→13:22)
[2018-12-01] MEDS: Enoxaparin 40 MG/0.4 ML Syringe SC (09:42)
--- NOTE | 2018-12-01 10:30 | NURSING ---
Dr. Negron called undersigned at this time, instructed to change chest tube setting to -30. Same done at this time with verification with emmanulele Black RN.
--- NOTE | 2018-12-01 10:39 | NURSING ---
Dr. Negron on floor at this time, changed chest tube suction to -40.
--- NOTE | 2018-12-01 11:45 | NURSING ---
Talked with Alexus at Palliative Care. Gave Alexus information to talk to pt's daughter, Donavon Arthur.
--- NOTE | 2018-12-01 13:00 | RAD_ITS ---
STUDY: X-RAY CHEST REASON FOR EXAM: Male, 58 years old. Chest tube, pneumothorax follow-up TECHNIQUE: AP COMPARISON: Earlier today FINDINGS: EKG leads project over the chest. Right-sided chest tube is stable. Parenchymal consolidation in the right more than left lung base stable since the prior study. Trace right pleural effusion is stable. There is stable small (8.8 mm pleural separation) pneumothorax along the right lateral chest. Normal size heart. Normal mediastinum and oliver. Normal visualized pulmonary arteries. Normal visualized aortic arch and descending thoracic aorta. No acute bony process. There is no demonstrated abnormality of the visualized soft tissue structures of the upper abdomen. RAD/Chest 1 View (Portable) IMPRESSION: Stable small (10%) right lateral pneumothorax. Right more than left basilar airspace disease with trace right pleural effusion, stable. Stable right chest tube. Electronically Signed: Wero Mcclure MD at 13:29 EDT , Service support ,
--- NOTE | 2018-12-01 14:55 | PCM.PN.BLA ---
Progress Note Repeat CXR with -40 suction still had a 10 % PTX on right. d/w pt and family recommend either transfer to tertiary facility or palliative care/hospice. Pt and family met with palliative care today and did choose to go to hospice.
--- NOTE | 2018-12-01 14:58 | PCM.DC.SUM ---
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 Pt had a large right PTX, percutaneous CT placed in ER to -20 suction- lung wsa initially re-expanded on post procedure CXR. Pt was on 4th round of chemo/treatment per pt. Pt sees Dr. Ugalde at . Pt had PEG placed mid 2017; however for the last 3-4 weeks was only using TF when he felt hungry and he was having coughing with drinking any liquids and unable to eat PO. Albumin was 1.8 and pre albumin was 4.3, BMI 13.5. TF restarted and electrolytes monitored and replaced. 11/30 AM CXR showed PTX on right w tube in place, this was exchanged for a larger CT 20 Fr, again post procedure CXR showed expansion of RLL, as RUL has some adhesions. Pt tolerated TF at 55 cc/hr K/phos/mag replaced. D/w Dr. Nelson placing palliative care consult, which he felt was reasonable due to malnutrition, cachexia, unable to walk short distances recently. 12/01 Again pt had small 10 % PTX with [address] and to -20 suction with +leak with cough, suction changed to -40 but CXR was unchanged. Offer Pt transfer to tertiary facility verse palliative care/hospice. Pt and family met with palliative and pt agreed to go to hospice. Patient Problems: Active and Suspected Problems Pneumothorax, right (Acute) - Physical Exam General: Alert, Oriented x3, Cooperative, No apparent distress, - - cachexic Lungs: Rhonchi - R base, Wheezes - R base, - - otherwise CTA other than in the R mid/base Cardiovascular: Tachycardic Abdomen: Soft, Non Tender, Non-Distended Extremities: No clubbing, No cyanosis, No edema Musculoskeletal: Cachexia Neurological: Cranial nerves II-XII grossly intact Psych/Mental Status: Flat Affect Vital Signs Temp Pulse Resp BP Pulse Ox 98.4 F 115 H 18 111/70 98 12/01/18 08:46 12/01/18 13:05 12/01/18 08:46 12/01/18 08:46 12/01/18 08:46 Oxygen Flow Rate (L/min) 1 Oxygen Delivery Method Room Air Weight: 96 lb 11.2 oz Body Mass Index (BMI) 13.4 Intake and Output for Last 24 Hours 11/29/18 11/30/18 12/01/18 23:59 23:59 23:59 Intake Total 413 / 413 4896 / 4896 2380 / 2380 Output Total 0 / 0 1405 / 1405 630 / 630 Balance 413 / 413 3491 / 3491 1750 / 1750 Laboratory Tests Past 24 Hrs 12/01/18 05:05 Sodium 141 Potassium 3.4 L Chloride 108 H Carbon Dioxide 26.0 Anion Gap 7 BUN 3 L Creatinine 0.53 L Estim Creat Clear Calc 94.25 Est GFR (MDRD) Af Amer 205 Est GFR (MDRD) Non-Af 170 BUN/Creatinine Ratio 5.7 L Glucose 128 H Calcium 7.6 L Phosphorus 2.0 L Magnesium 1.8 Home Medications: Medications to take at Discharge Ondansetron [Zofran] 8 mg PO Q8H PRN PRN 01/26/18 Megestrol Acetate 20 ml GT DAILY 11/06/18 Olanzapine 10 mg GT QHS 11/06/18 Tizanidine HCl 6 mg GT TID PRN PRN 11/06/18 traMADol [Ultram] 50 - 100 mg GT Q6H PRN 11/06/18 Potassium Chloride [Klor-Con M20] 20 meq GT BID 11/18/18 Lactose-Reduced Food/Fiber [Isosource 1.5 Wili Liquid] 250 ml GT Q4H 11/29/18 Primary Care Physician: Jane Campbell MD [Primary Care Provider] - Disposition: Hospice Medical Facility Minutes spent on discharge:: 25 Patient Condition:: Fair - current VSS with CT to -20 Medical Necessity - Tobacco Use Smoking Status: Former smoker Meaningful Use Info Meaningful Use Diagnoses (Choose all that apply): None applicable Code Visit Inpatient E&M: 12425 Disch Hosp
--- NOTE | 2018-12-01 15:24 | NURSING ---
Report given to Tamia at the inpatient Hospice house.
[2018-12-01] MEDS: traMADol 50 MG Tablet GT (15:37)
== END 2018-12-01 16:10 | disposition hospice, inpatient (51) | DRG 199 ==
LOC: ED 17:00 → MS3 17:13
PROVIDERS: Admitting Provider Surgery; Emergency Provider Emergency Medicine; Family Provider Family Medicine; PCP Family Medicine; Visit Provider Surgery
DX: J93.9 Pneumothorax, unspecified (principal); E43 Unspecified severe protein-calorie malnutrition; C78.7 Secondary malignant neoplasm of liver and intrahepatic bile duct; C78.00 Secondary malignant neoplasm of unspecified lung; Z68.1 Body mass index [BMI] 19.9 or less, adult; R64 Cachexia; Z93.1 Gastrostomy status; Z79.899 Other long term (current) drug therapy; E87.6 Hypokalemia; Z51.5 Encounter for palliative care; C14.0 Malignant neoplasm of pharynx, unspecified; Z87.891 Personal history of nicotine dependence
CPT/HCPCS: 32551; 36415; 71045; 71046; 71275; 80048; 80076; 83605; 83735; 84100; 84134; 84484; 85025; 85610; 85730; 92610; 93005; 94640; 94762; 97802; 99283; J7030; J7040; J7120; Q9967; A4216